=== PATIENT | male | born 1940 | race Caucasian/White ===

== ENCOUNTER 2018-05-15 16:18 | Inpatient (IN) | payer OTHER ==
--- NOTE | 2018-05-15 16:46 | PDOC ---
History of Present Illness - General Chief Complaint: Shortness of Breath Stated Complaint: SOB Time Seen by Provider: 05/15/18 16:36 History Source: Patient Exam Limitations: No Limitations - History of Present Illness Initial Comments: 05/15/18 16:39 The patient is a 78M with a PMH of non small cell lung cancer, HTN, and COPD who presents to the ER with worsening SOB. The patient states that for the past 2 days, he has had worsening SOB including a worsening productive cough with sputum. He states that he tried using his home inhalers without relief. He denies any symptoms of fever, chills, nausea, vomiting, CP, dysuria. He denies any blood in his sputum. Past History - Past Medical History Allergies/Adverse Reactions: Allergies Allergy/AdvReac Type Severity Reaction Status Date / Time No Known Allergies Allergy Verified 05/15/18 16:29 Home Medications: Ambulatory Orders Azithromycin [Zithromax 250mg Tablets -] 250 mg PO UTDICT #6 tab 01/07/18 Inhaler, Assist Devices [Space Chamber Plus] 1 each MC Q4H PRN #1 spacer Prednisone [Deltasone] 20 mg PO DAILY #4 tablet 01/07/18 Cancer: Yes (LUNG ,SMALL CELL) COPD: Yes HTN: Yes - Surgical History Abdominal Surgery: Yes (ING.HERNIA) Lung Surgery: Yes (BIOPSY AND CHEST TUBE LT) - Suicide/Smoking/Psychosocial Hx Smoking History: Former smoker Have you smoked in the past 12 months: No Information on smoking cessation initiated: No 'Breaking Loose' booklet given: 01/07/18 Hx Alcohol Use: No Drug/Substance Use Hx: No Substance Use Type: None Review of Systems - Review of Systems Able to Perform ROS?: Yes Comments:: 05/15/18 16:50 GENERAL/CONSTITUTIONAL: No fever or chills. No weakness. HEAD, EYES, EARS, NOSE AND THROAT: No change in vision. No ear pain or discharge. No sore throat. CARDIOVASCULAR: No chest pain, palpitations, or lightheadedness. RESPIRATORY: Positive for shortness of breath and productive cough. No wheezing or hemoptysis. GASTROINTESTINAL: No nausea, vomiting, diarrhea, constipation, or abdominal pain. GENITOURINARY: No dysuria, frequency, hematuria, or change in urination. MUSCULOSKELETAL: No joint or muscle swelling or pain. No neck or back pain. SKIN: No rash or lesions. NEUROLOGIC: No headache, numbness, tingling, weakness, loss of consciousness, or change in strength/sensation. ENDOCRINE: No increased thirst. No abnormal weight change. HEMATOLOGIC/LYMPHATIC: No anemia, easy bleeding, or history of blood clots. ALLERGIC/IMMUNOLOGIC: No hives or skin allergy. Is the patient limited Cymro proficient: No *Physical Exam - Vital Signs Last Vital Signs Temp Pulse Resp BP Pulse Ox 99 F 127 H 36 H 157/112 89 L 05/15/18 16:29 05/15/18 16:29 05/15/18 16:29 05/15/18 16:29 05/15/18 16:29 - Physical Exam Comments: 05/15/18 16:51 GENERAL: Well developed, well nourished. Awake and alert. No acute distress. HEENT: Normocephalic, atraumatic. Hearing grossly normal. Moist mucous membranes. PERRLA, EOMI. No conjunctival pallor. Sclera are non-icteric. Oropharynx is clear. NECK: Supple. Full ROM. No JVD. CARDIOVASCULAR: Regular rate and rhythm. No murmurs, rubs, or gallops. PULMONARY: In moderate respiratory distress. Inspiratory and expiratory wheezing diffusely on the L lung. Decreased lung sounds on the R lung. ABDOMINAL: Soft. Non-tender. Non-distended. No rebound or guarding. GENITOURINARY: No CVA tenderness bilaterally. MUSCULOSKELETAL: Normal range of motion at all joints. No bony deformities or tenderness. EXTREMITIES: No cyanosis. No clubbing. No edema. No calf tenderness or swelling. SKIN: Warm and dry. Normal capillary refill. No rashes. No jaundice. NEUROLOGICAL: Alert, awake, appropriate. Cranial nerves 2-12 intact. Normal speech. PSYCHIATRIC: Cooperative. Good eye contact. Appropriate mood and affect. ED Treatment Course - LABORATORY CBC & Chemistry Diagram: 05/15/18 17:23 05/15/18 17:23 - RADIOLOGY Radiology Studies Ordered: Category Date Time Status CHEST X-RAY PORTABLE* [RAD] Stat Radiology 05/15/18 16:36 Ordered Medical Decision Making - Medical Decision Making 05/15/18 16:56 The patient is a 78M with a PMH of Lung CA, HTN, and COPD who presents to the ER in respiratory distress, tachypneic, an dtachycardic. I am concerned for worsening lung CA, pleural effusion, infection, PE. Last chemo was 1 week ago so the patient may have an acutely immunocompromised state. Will order sepsis workup. Pending labs and imaging. 05/15/18 17:31 Pt has worsening respiratory distress. Will add duoneb tx, magnesium, and solumedrol. 05/15/18 18:41 Pt states he feels much better but I have discusssed the case with Dr. Parrish who states that the patient had a RLL ill defined opacity, possible neoplastic. Slight hint of progressive disease. He agrees to our plan of CTA if BUN/Cr are normal and treating the patient as COPD vs post-obstructive PNA vs worsening CA. 05/15/18 19:24 I have endorsed the pt to Dr. Guajardo who agrees with our plan. Pt will go to tele. 05/15/18 19:37 Trop 0.46. Repeating troponin now. 05/15/18 22:01 Repeat troponin 0.54. Pt states that he has had worsening SOB. Will give 3 duoneb treatments and monitor closely. *DC/Admit/Observation/Transfer Diagnosis at time of Disposition: COPD exacerbation, Shortness of breath - Discharge Dispostion Condition at time of disposition: Guarded Decision to Admit order: Yes - Referrals - Patient Instructions - Post Discharge Activity
[2018-05-15] MEDS ORDERED: ALBUTEROL SO4 2.5/IPRATROPIUM 0.5 INH SOL 3 ML VIAL.NEB. NEB ONE ×7 (17:10→23:22)
[2018-05-15 17:39] LABS: BASO % 0.1 % (0-2.0); EOS % 0.1 % (0-4.5); HEMATOCRIT 34.8 % (35.4-49); HEMOGLOBIN 11.5 GM/dL (11.7-16.9); LYMPH % 6.8 % (8-40); MCHC 33.2 g/dl (32.0-35.9); MEAN CELL VOLUME 93.3 fl (80-96); MONO % 16.3 % (3.8-10.2); NEUT % 76.7 % (42.8-82.8); PLATELET COUNT 253 K/MM3 (134-434); RBC 3.73 M/mm3 (4.00-5.60); RDW 19.1 % (11.9-15.9); WHITE BLOOD COUNT 10.5 K/mm3 (4.0-10.0)
[2018-05-15 17:40] LABS: VENOUS PC02 45.7 mmHg (38-52); VENOUS PH 7.38 (7.32-7.42); VENOUS PO2 42.5 mmHg (28-48)
[2018-05-15] MEDS ORDERED: methylPREDNISolone NA SUCC 125 MG/2 ML VIAL IVPUSH ONE (17:47)
[2018-05-15 17:50] LABS: INR 1.28 (0.82-1.09); PROTHROMBIN TIME (PATIENT) 14.5 SEC (9.7-13.0)
[2018-05-15 17:53] LABS: ACTIVATED PTT 30.6 SECONDS (25.2-36.5)
--- NOTE | 2018-05-15 18:00 | PDOC ---
Attending Attestation - HPI HPI: 05/15/18 19:13 Mr. Villalta is a 78 year old male with past medical history of HTN, COPD, presents to the emergency department with shortness of breath. Patient presents with an acute onset of progressively worsening shortness of breath for the past 2 days, denies using his nebulizer or inhaler. Patient reports a 6 year chronic history of productive cough, progressively worsening with the SOB. . Denies fever, chills, or a headache. Denies chest pain. Denies nausea or vomiting. Denies diarrhea or constipation. Denies dysuria, hematuria, frequency or urgency to urinate. Denies vertigo or dizziness. Denies numbness, tingling or loss of sensation. Allergies: NKDA Social history: Former smoker. Denies the use of alcohol or recreational drugs. Surgical history: ING.HERNIA and BIOPSY AND CHEST TUBE LT PCP: Noelle Marsh Broker Associate: Dr. Lomeli Oncologist: Dr. Lerner 05/15/18 21:51 - Physicial Exam PE: 05/15/18 19:21 GENERAL: (+) diaphoretic w/ complaint of increasing shortness of breath. Well developed, well nourished. Awake and alert. No acute distress. HEENT: Normocephalic, atraumatic. PERRLA, EOMI. No conjunctival pallor. Sclera are non- icteric. Moist mucous membranes. Oropharynx is clear. NECK: Supple. Full ROM. No JVD. Carotid pulses 2+ and symmetric, without bruits. No thyromegaly. No lymphadenopathy. CARDIOVASCULAR:(+) tachycardia. Regular rate and rhythm. No murmurs, rubs, or gallops. Distal pulses are 2+ and symmetric. PULMONARY: (+) decreased breath sounds. No evidence of respiratory distress. Lungs clear to auscultation bilaterally. No wheezing, rales or rhonchi. ABDOMINAL: flat. Soft. Non-tender. Non-distended. No rebound or guarding. No organomegaly. Normoactive bowel sounds. MUSCULOSKELETAL Normal range of motion at all joints. No bony deformities or tenderness. No CVA tenderness. EXTREMITIES: Full ROM. No cellulitis. No cyanosis. No clubbing. No edema. No calf tenderness. SKIN: Warm and dry. Normal capillary refill. No rashes. No jaundice. NEUROLOGICAL: Alert, awake, appropriate. Cranial nerves 2-12 intact. No deficits to light touch and temperature in face, upper extremities and lower extremities. No motor deficits in the in face, upper extremities and lower extremities. Normoreflexic in the upper and lower extremities. Normal speech. Toes are down- going bilaterally. Gait is normal without ataxia. PSYCHIATRIC: (+) anxious. Cooperative. Good eye contact. Appropriate mood and affect. - Medical Decision Making 05/15/18 21:52 Documentation prepared by Meenakshi Crow, acting as medical transport specialist for Makenzie Guan MD. <Meenakshi Crow - Last Filed: 05/15/18 21:51> - Resident Resident Name: Johnathan Allison - ED Attending Attestation I have performed the following: I have examined & evaluated the patient, The case was reviewed & discussed with the resident, I agree w/resident's findings & plan, Exceptions are as noted - HPI HPI: 05/15/18 18:00 78-year-old male undergoing chemotherapy for lung cancer presents with increasing shortness of breath. In addition to lungs CTA. He has history of COPD. Broker Associate is Dr. Lomeli, PCP is Dr. Chela Padron - Physicial Exam PE: 05/15/18 18:00 78-year-old male with acute respiratory distress. He is tachycardic, hypoxic, diaphoretic with complaint of increasing shortness of breath. Head normocephalic/atraumatic. Neck supple Lungs decreased breath sounds. Abdomen flat, nontender. CVS tachycardia Extremities full range of motion, no evidence of cellulitis. Neuro alert and oriented 3, moving all extremities. Skin warm and dry. Psych anxious - Medical Decision Making 05/15/18 22:03 CT chest is negative for pulmonary embolus, large pleural effusions or consolidation. pulmonary spec, Dr Douglas informed and agrees to tele admission IMP copd exacerbation/lung cancer/elevated troponin r/o NE <Makenzie Guan - Last Filed: 05/15/18 22:07>
[2018-05-15 18:04] LABS: ALBUMIN 2.7 g/dl (3.4-5.0); ANION GAP 8 (8-16); BILIRUBIN,TOTAL 0.8 mg/dL (0.2-1.0); BLOOD UREA NITROGEN 18 mg/dL (7-18); CALCIUM 8.3 mg/dL (8.5-10.1); CHLORIDE 93 mmol/L (98-107); CO2 27 mmol/L (21-32); CREATININE 0.6 mg/dL (0.7-1.3); GLUCOSE,RANDOM 148 mg/dL (74-106); POTASSIUM 3.9 mmol/L (3.5-5.1); SGOT/AST 30 U/L (15-37); SGPT/ALT 30 U/L (12-78); SODIUM 128 mmol/L (136-145); TOT PROT 5.6 g/dl (6.4-8.2)
[2018-05-15 18:05] LABS: ALK PHOS 130 U/L (45-117)
[2018-05-15] MEDS ORDERED: MAGNESIUM SULF 50% (8.12 MEQ/2 ML-1 GM VIAL) IVPB ONE (18:10)
[2018-05-15] MEDS ORDERED: VANCOMYCIN 1,000 MG in DEXTROSE 5%-WATER - 250 ML IVPB ONE (18:10)
[2018-05-15] MEDS ORDERED: SODIUM CHLORIDE 0.9% 1000 ML INFUS.BAG IV ONE (18:10)
[2018-05-15] MEDS ORDERED: PIPERACILLIN/TAZOB 4.5 GM 4.5 GM in DEXTROSE 5%-WATER 100 ML IVPB ONE (18:10)
[2018-05-15] MEDS ORDERED: PIPERACILLIN/TAZOB 4.5 GM 4.5 GM/100 ML BAG IVPB ONE (18:13)
[2018-05-15] MEDS ORDERED: VANCOMYCIN 1 GRAM (PRE-DOCKED) 1,000 MG/250 ML BAG IVPB ONE ×2 (18:13→18:47)
[2018-05-15] MEDS ORDERED: MAGNESIUM SULF 50% (8.12 MEQ/2 ML-1 GM VIAL) ONE (18:30)
[2018-05-15] MEDS ORDERED: methylPREDNISolone NA SUCC 125 MG/2 ML VIAL ONE ×2 (18:30→23:12)
[2018-05-15 19:31] LABS: ARTERIAL BLD GAS O2 SATURATION 97.9 % (90-98.9); ARTERIAL BLOOD GAS pH 7.36 (7.35-7.45)
[2018-05-15 19:32] LABS: ALLENS TEST POSITIVE
[2018-05-15 20:40] LABS: URINE APPEARANCE CLEAR; URINE BILIRUBIN NEGATIVE (<2.0 mg/dL); URINE COLOR YELLOW; URINE GLUCOSE (UA) NEGATIVE (NEGATIVE); URINE KETONE NEGATIVE (NEGATIVE); URINE LEUK ESTERASE NEGATIVE (NEGATIVE); URINE NITRITE NEGATIVE (NEGATIVE); URINE PROTEIN NEGATIVE (NEGATIVE); URINE UROBILINOGEN NEGATIVE mg/dL (0.2-1.0)
[2018-05-15 20:51] LABS: EPI CELLS RARE /HPF (FEW); URINE HYALINE CAST 1 /lpf; URINE MUCUS RARE
[2018-05-15] MEDS ORDERED: ACETAMINOPHEN 325 MG TABLET (FP) PO PRN (22:33)
[2018-05-15] MEDS: methylPREDNISolone NA SUCC 125 MG/2 ML VIAL IVPB SCH (23:22)
[2018-05-16] MEDS ORDERED: PIPERACILLIN/TAZOBACTAM 3.375 GM VIAL IVPB ONE ×3 (01:29→17:39)
[2018-05-16] MEDS ORDERED: DEXTROSE 5%-WATER - 50 ML IVPB ONE ×3 (01:30→17:39)
[2018-05-16] MEDS ORDERED: PIPERACILLIN/TAZOB 3.375 GM 3.375 GM in DEXTROSE 5%-WATER - 50 ML IVPB SCH (02:00)
[2018-05-16] MEDS: PIPERACILLIN/TAZOB 3.375 GM 3.375 GM in DEXTROSE 5%-WATER - 50 ML IVPB SCH ×3 (02:22→17:45)
[2018-05-16 03:58] VITALS: BMI 19.6
[2018-05-16] MEDS: methylPREDNISolone NA SUCC 125 MG/2 ML VIAL IVPB SCH ×4 (04:03→21:58)
[2018-05-16 07:12] LABS: BASO % 0.1 % (0-2.0); HEMATOCRIT 30.6 % (35.4-49); HEMOGLOBIN 10.4 GM/dL (11.7-16.9); LYMPH % 9.1 % (8-40); MCH 31.8 pg (25.7-33.7); MCHC 34.1 g/dl (32.0-35.9); MEAN CELL VOLUME 93.2 fl (80-96); MONO % 4.5 % (3.8-10.2); NEUT % 86.3 % (42.8-82.8); PLATELET COUNT 214 K/MM3 (134-434); RBC 3.28 M/mm3 (4.00-5.60); RDW 19.5 % (11.9-15.9); WHITE BLOOD COUNT 9.4 K/mm3 (4.0-10.0)
[2018-05-16 07:23] LABS: ALBUMIN 2.3 g/dl (3.4-5.0); ANION GAP 9 (8-16); BLOOD UREA NITROGEN 17 mg/dL (7-18); CALCIUM 7.9 mg/dL (8.5-10.1); CHLORIDE 95 mmol/L (98-107); CO2 26 mmol/L (21-32); GLUCOSE,RANDOM 153 mg/dL (74-106); POTASSIUM 3.8 mmol/L (3.5-5.1); SODIUM 130 mmol/L (136-145)
[2018-05-16 07:29] LABS: ALK PHOS 115 U/L (45-117); BILIRUBIN,TOTAL 0.6 mg/dL (0.2-1.0); CREATININE 0.6 mg/dL (0.7-1.3); SGOT/AST 24 U/L (15-37); SGPT/ALT 27 U/L (12-78)
--- NOTE | 2018-05-16 08:11 | HP ---
Admitting History and Physical - Primary Care Physician PCP: Noelle Blancas - Admission Chief Complaint: shortness of breath History of Present Illness: received chemo on 05.08.18, felt weak afterwards and has been constipated . yesterday developed severe shortness of breath so came to er. has chronic cough, mostly at nighttime with yellow sputum production. no chest pain or palpitation noted by pt. not on home O2, recently evaluated for it, did not need it. now on gemcitabine weekly for two weeks, then one week off. chest ct in january 2018 showed: melva and lll spiculated nodules ill defined densities in right and left lower lobe likely neoplastic right lower lobe ground glass opacities History Source: Patient Limitations to Obtaining History: No Limitations - Past Medical History Cardiovascular: Yes: CAD (card.cath 2015-no stents, (pt had abnormal EKG and stress test)), HTN Pulmonary: Yes: Cancer (squamous cell cancer dg in , multiple sites, not candidate for surgical or radiation, started gemcitabine and carboplatin, currently on gemcitabine maintenance), COPD - Past Surgical History Past Surgical History: Yes: Cataract Removal, Hernia Repair (inguinal) - Smoking History Smoking history: Former smoker (60 pack year smoking history) Have you smoked in the past 12 months: Yes If you are a former smoker, when did you quit?: 2017 - Alcohol/Substance Use Hx Alcohol Use: Yes (BEER DAILY) - Social History Usual Living Arrangement: Yes: With Spouse ADL: Independent History of Recent Travel: No Home Medications - Allergies Allergies/Adverse Reactions: Allergies Allergy/AdvReac Type Severity Reaction Status Date / Time No Known Allergies Allergy Verified 05/15/18 16:29 - Home Medications Home Medications: Ambulatory Orders Inhaler, Assist Devices [Space Chamber Plus] 1 each MC Q4H PRN #1 spacer Prednisone [Deltasone] 20 mg PO DAILY #4 tablet 01/07/18 Review of Systems - Review of Systems Constitutional: reports: Loss of Appetite, Unintentional Wgt. Loss, Weakness. denies: Chills, Diaphoresis, Fever HENT: reports: No Symptoms Neck: reports: No Symptoms Cardiovascular: reports: No Symptoms. denies: Chest Pain, Palpitations Respiratory: reports: Cough, Exercise Intolerance, SOB on Exertion. denies: Hemoptysis, Wheezing Gastrointestinal: reports: No Symptoms Genitourinary: reports: No Symptoms Integumentary: reports: No Symptoms Neurological: reports: No Symptoms Psychiatric: reports: No Symptoms Physical Examination Vital Signs: Vital Signs Temperature 98.7 F 05/16/18 01:00 Pulse Rate 190 H 05/16/18 01:00 Respiratory Rate 22 05/16/18 01:00 Blood Pressure 127/72 05/16/18 01:00 O2 Sat by Pulse Oximetry (%) 90 L 05/16/18 01:00 Findings/Remarks: feels comfortable, denies dyspnea at present Constitutional: Yes: No Distress, Calm, Cachectic Eyes: Yes: WNL HENT: Yes: WNL Neck: Yes: WNL Cardiovascular: Yes: Regular Rate and Rhythm Respiratory: Yes: Diminished (decreased bs at both bases), Wheezes (exp. wheezing over upper chest) Gastrointestinal: Yes: WNL, Normal Bowel Sounds, Soft Musculoskeletal: Yes: WNL Extremities: Yes: WNL Edema: LLE: 1+, RLE: 1+ Peripheral Pulses WNL: Yes Neurological: Yes: WNL Psychiatric: Yes: WNL Labs: CBC, BMP 05/16/18 05:30 05/16/18 05:30 Abnormal Lab Results 05/15/18 05/15/18 05/15/18 17:20 17:23 17:23 WBC 10.5 H RBC 3.73 L Hgb 11.5 L Hct 34.8 L RDW 19.1 H MPV 6.0 L Neutrophils % Lymphocytes % 6.8 L D Monocytes % 16.3 H PT with INR 14.50 H INR 1.28 H Mixed VBG HCO3 Sodium Chloride Creatinine Random Glucose Lactic Acid 2.2 H* Calcium Alkaline Phosphatase Troponin I Total Protein Albumin Urine Blood 05/15/18 05/15/18 05/15/18 17:23 17:23 17:23 WBC RBC Hgb Hct RDW MPV Neutrophils % Lymphocytes % Monocytes % PT with INR INR Mixed VBG HCO3 26.5 H Sodium 128 L Chloride 93 L Creatinine 0.6 L Random Glucose 148 H D Lactic Acid Calcium 8.3 L Alkaline Phosphatase 130 H Troponin I 0.46 H Total Protein 5.6 L Albumin 2.7 L Urine Blood 05/15/18 05/15/18 05/16/18 19:45 20:30 05:30 WBC RBC 3.28 L Hgb 10.4 L Hct 30.6 L RDW 19.5 H MPV 6.0 L Neutrophils % 86.3 H Lymphocytes % Monocytes % PT with INR INR Mixed VBG HCO3 Sodium Chloride Creatinine Random Glucose Lactic Acid Calcium Alkaline Phosphatase Troponin I 0.51 H Total Protein Albumin Urine Blood 2+ H 05/16/18 05:30 WBC RBC Hgb Hct RDW MPV Neutrophils % Lymphocytes % Monocytes % PT with INR INR Mixed VBG HCO3 Sodium 130 L Chloride 95 L Creatinine 0.6 L Random Glucose 153 H Lactic Acid Calcium 7.9 L Alkaline Phosphatase Troponin I 0.20 H D Total Protein 5.0 L Albumin 2.3 L Urine Blood Imaging - Results Cat Scan: Report Reviewed Problem List - Problems (1) Lung cancer Code(s): C34.90 - MALIGNANT NEOPLASM OF UNSP PART OF UNSP BRONCHUS OR LUNG Qualifiers: Laterality: left Lung location: upper lobe of lung Qualified Code(s): C34.12 - Malignant neoplasm of upper lobe, left bronchus or lung (2) HTN (hypertension) Code(s): I10 - ESSENTIAL (PRIMARY) HYPERTENSION Qualifiers: Hypertension type: essential hypertension Qualified Code(s): I10 - Essential (primary) hypertension (3) Pneumonia Code(s): J18.9 - PNEUMONIA, UNSPECIFIED ORGANISM Qualifiers: Lung location: upper lobe of lung (4) COPD exacerbation Code(s): J44.1 - CHRONIC OBSTRUCTIVE PULMONARY DISEASE W (ACUTE) EXACERBATION (5) Shortness of breath Code(s): R06.02 - SHORTNESS OF BREATH Assessment/Plan Acute COPD exacerbation advanced COPD at baseline possible additional pna underlying lung cancer-with slow progression noted over serial imaging on gemcitabine maintenance iv steroids with rapid taper iv abx? positive troponin likely due to cardiac strain due to severe dyspnea yesterday no pulmonary embolism re evaluate for home O2 prior to dc GI/DVT prophylaxis
[2018-05-16] MEDS ORDERED: guaiFENesin/CODEINE 5 ML UNIT-DOSE CUPS PO PRN (08:24)
[2018-05-16] MEDS: ALBUTEROL SO4 0.083% IH SOL 2.5 MG/3 ML VIAL.NEB. NEB PRN ×2 (10:35→20:40)
[2018-05-16] MEDS: amLODIPine BESYLATE 5 MG TABLET (FP) PO SCH (10:58)
[2018-05-16] MEDS: ASPIRIN COATED 81 MG TABLET.EC PO SCH (10:58)
[2018-05-16] MEDS: ENOXAPARIN NA (PORCINE) 40 MG/0.4 ML DISP.SYRIN SQ SCH (10:59)
[2018-05-16] MEDS: PANTOPRAZOLE 40 MG TABLET (FP) PO SCH (11:00)
--- NOTE | 2018-05-16 11:09 | PN ---
Progress Note (short form) - Note Progress Note: PULMONARY CONSULTATION DICTATED 05/16/18 IMP ACUTE HYPOXEMIC RESPIRATORY FAILURE COPD EXACERBATION LUNG CA SQUAMOUS CELL ON GEMCITABINE BILATERAL PULMONARY NODULES + TROPONINS ? DEMAND ISCHEMIA HYPONATREMIA ASHD HTN PLAN O2 INHALED BRONCHODILATORS STEROIDS ABX TREND TROPONINS MONITOR [place] [address] Problem List - Problems (1) Acute hypoxemic respiratory failure Code(s): J96.01 - ACUTE RESPIRATORY FAILURE WITH HYPOXIA (2) COPD exacerbation Code(s): J44.1 - CHRONIC OBSTRUCTIVE PULMONARY DISEASE W (ACUTE) EXACERBATION (3) HTN (hypertension) Code(s): I10 - ESSENTIAL (PRIMARY) HYPERTENSION Qualifiers: Hypertension type: essential hypertension Qualified Code(s): I10 - Essential (primary) hypertension (4) Lung cancer Code(s): C34.90 - MALIGNANT NEOPLASM OF UNSP PART OF UNSP BRONCHUS OR LUNG Qualifiers: Laterality: left Lung location: upper lobe of lung Qualified Code(s): C34.12 - Malignant neoplasm of upper lobe, left bronchus or lung (5) Shortness of breath Code(s): R06.02 - SHORTNESS OF BREATH (6) Troponin I above reference range Code(s): R74.8 - ABNORMAL LEVELS OF OTHER SERUM ENZYMES
--- NOTE | 2018-05-16 11:24 | EKG ---
Test Reason : Blood Pressure : / mmHG Vent. Rate : 111 BPM Atrial Rate : 111 BPM P-R Int : 158 ms QRS Dur : 088 ms QT Int : 354 ms P-R-T Axes : 073 -48 263 degrees QTc Int : 481 ms POOR DATA QUALITY, INTERPRETATION MAY BE ADVERSELY AFFECTED SINUS TACHYCARDIA WITH FREQUENT PREMATURE VENTRICULAR COMPLEXES AND FUSION COMPLEXES POSSIBLE LEFT ATRIAL ENLARGEMENT LEFT AXIS DEVIATION ANTERIOR INFARCT , AGE UNDETERMINED T WAVE ABNORMALITY, CONSIDER LATERAL ISCHEMIA ABNORMAL ECG Confirmed by MD TK, MAN ([id number]) on 05/16/2018 11:24:37 AM Referred By: Confirmed By:MAN FREY MD
--- NOTE | 2018-05-16 11:37 | CONS ---
PULMONARY CONSULTATION DATE OF CONSULTATION: 05/16/2018 REFERRING PHYSICIAN: Noelle Blancas MD The patient is a 78-year-old white male with a past medical history of COPD, not on home O2; history of lung CA, non-small cell type diagnosed in May 2017, currently on chemotherapy, being followed at [facility] on chemotherapy of gemcitabine, last dose 1 day prior to this admission, also history of ASHD status post catheterization, hypertension, admitted to [facility] on May 15, with complaint of increasing shortness of breath. Patient states he was watching TV and complained of acute shortness of breath. He denied any chest pain, nausea, vomiting, or diaphoresis. Did complain of cough productive of yellow sputum and occasional wheezing. He presented to the emergency room with the above. In the ER, he underwent a CTA of the chest which showed no evidence of pulmonary emboli but revealed increase in interval growth of the left upper lobe nodule and ill-defined densities in the right and left lower lobe. The patient was also noted to have elevated troponin levels. At which time, he was transferred to the medical telemetry unit for management. He denies any chest pain. He denies any history of respiratory failure in the past requiring ventilatory support. As stated before, he has a history of lung CA which was diagnosed in May [address]-guided biopsy at [facility] and has been on gemcitabine. He has a history of tobacco use, approximately 1-1/2 packs per day for 65 years. He quit in May 2017. He denies any history of occupational exposure to chemicals or fumes. There is no history of deep vein thrombosis or pulmonary emboli in the past. PAST MEDICAL HISTORY: Again includes lung CA, squamous cell, diagnosed in July 2017, not a candidate for surgical or RT, currently maintained on gemcitabine and carboplatin, currently on gemcitabine maintenance; a history of ASHD status post catheterization, no stents; hypertension. REVIEW OF SYSTEMS: Positive dyspnea. Positive cough. Positive sputum. No hemoptysis. No chest pain. No palpitations. No fever. No chills. No abdominal pain. CURRENT MEDICATIONS: Include Solu-Medrol 60 q.6, Tylenol, piperacillin, Lovenox, Spiriva, Robitussin A-C, albuterol, Norvasc, Singulair, Ecotrin, and Protonix. PHYSICAL EXAMINATION: General: The patient is a well-developed, well-nourished male, awake, alert, in no acute distress. Vital Signs: He is afebrile. Blood pressure is 127/72, respiratory rate is 20, heart rate is 110, and O2 saturation is 94% on 3 L. HEENT: Normocephalic, atraumatic. Neck: Supple. Heart: Regular. S1, S2. Chest: Bibasilar crackles. A few scattered wheezes. Rhonchi bilaterally. Abdomen: Soft. Bowel sounds are positive. Extremities: No cyanosis or edema. LABORATORY DATA: BUN is 17, creatinine 0.6. Sodium is 130. On admission, serum sodium was 128. The lactate level was 2.2 on admission, most recent 1.9. Troponin currently 0.20, the highest being 0.51. WBC is 9.4, hemoglobin 10.4, hematocrit 30.6, with a platelet count of 214,000. INR is 1.28. Chest CT reveals a 2.5-cm, semi-solid nodule in the anterior basal portion of the right lower lobe. There is a 1.3-cm, spiculated, non-calcified nodule in the left upper lobe. It is increased in size from previous exam. There is a 1.4 irregular nodule in the anterior segment of the left upper lobe; stable, mild mediastinal adenopathy. IMPRESSION: 1. Dyspnea, most likely secondary to exacerbation of chronic obstructive pulmonary disease. 2. History of lung cancer, squamous cell type, currently on gemcitabine. 3. Positive troponins, possible secondary to demand ischemia but must rule out [id number] myocardial infarction. 4. Elevated lactate level, currently normal, . 5. Hyponatremia. 6. Hypertension. PLAN: IV steroids, inhaled bronchodilators, supplemental O2. Trend troponin levels. Obtain echocardiogram. Monitor serum sodium, urine electrolytes. Thank you. Will follow closely with you. LEOLA BERNARDO M.D. [id number]
[2018-05-16] MEDS: TIOTROPIUM BROMIDE 18 MCG CAPSULES IH SCH (12:55)
--- NOTE | 2018-05-16 14:01 | CON.CARD ---
Consult Consult Specialty:: cardiology Reason for Consultation:: shortness of breath - History of Present Illness Chief Complaint: Pt A&Ox3; no chest pain; dyspneic on minimal exertion (even when speaking). His is at bedside, and contributes to pt's history. History of Present Illness: The patient is a 78 yo white man with a PMH of non small cell lung cancer, HTN , and COPD who presents to the ER with worsening SOB. The patient states that for the past 2 days, he has had worsening SOB including a worsening productive cough with sputum. He states that he tried using his home inhalers without relief. He denies any symptoms of fever, chills, nausea, vomiting, CP, dysuria. He denies any blood in his sputum. 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 - History Source History Provided By: Patient, Family Member, Medical Record Limitations to Obtaining History: No Limitations - Past Medical History Cardio/Vascular: Yes: CAD (card.cath 2015-no stents, (pt had abnormal EKG and stress test)), HTN Pulmonary: Yes: Cancer (squamous cell cancer dg in , multiple sites, not candidate for surgical or radiation, started gemcitabine and carboplatin, currently on gemcitabine maintenance), COPD. No: Asthma Heme/Onc: Yes: Anemia Psych: Yes: Anxiety - Past Surgical History Past Surgical History: Yes: Cataract Removal, Hernia Repair (inguinal) - Alcohol/Substance Use Hx Alcohol Use: Yes (BEER DAILY) - Smoking History Smoking history: Former smoker (60 pack year smoking history) Have you smoked in the past 12 months: Yes If you are a former smoker, when did you quit?: 2017 - Social History ADL: Independent History of Recent Travel: No Home Medications - Allergies Allergies/Adverse Reactions: Allergies Allergy/AdvReac Type Severity Reaction Status Date / Time No Known Allergies Allergy Verified 05/15/18 16:29 - Home Medications Home Medications: Ambulatory Orders Inhaler, Assist Devices [Space Chamber Plus] 1 each MC Q4H PRN #1 spacer Prednisone [Deltasone] 20 mg PO DAILY #4 tablet 01/07/18 Review of Systems - Review of Systems Constitutional: reports: Loss of Appetite, Weakness Eyes: reports: No Symptoms HENT: reports: No Symptoms Neck: reports: No Symptoms Cardiovascular: reports: Shortness of Breath Respiratory: reports: SOB Gastrointestinal: reports: No Symptoms Genitourinary: reports: No Symptoms Breasts: reports: No Symptoms Reported Musculoskeletal: reports: Muscle Weakness Integumentary: reports: No Symptoms Neurological: reports: Weakness Hematology/Lymphatic: reports: No Symptoms Psychiatric: reports: Anxiety, Depression - Risk Factors Known Risk Factors: Yes: Age, Gender, Hypertension, Physical Inactivity, Smoking , Other (lung CA; COPD) Vital Signs: Vital Signs Temperature 97.6 F 05/16/18 09:00 Pulse Rate 108 H 05/16/18 09:00 Respiratory Rate 26 H 05/16/18 09:00 Blood Pressure 134/85 05/16/18 09:00 O2 Sat by Pulse Oximetry (%) 97 05/16/18 09:00 Constitutional: Yes: Calm Eyes: Yes: WNL HENT: Yes: WNL Neck: Yes: WNL Respiratory: Yes: Diminished Gastrointestinal: Yes: Soft Renal/: No: Anuria Cardiovascular: Yes: Regular Rate and Rhythm JVD: No Carotid Bruit: No PMI: Non-Displaced Heart Sounds: Yes: S1, S2 Murmur: Yes: Systolic Murmur, Grade 2 Musculoskeletal: Yes: Muscle Weakness Extremities: Yes: Cool Edema: No Peripheral Pulses WNL: Yes Integumentary: Yes: WNL Neurological: Yes: Alert, Oriented, Weakness Psychiatric: Yes: Alert, Oriented - Other Data Labs, Other Data: CBC, BMP 05/16/18 05:30 05/16/18 05:30 INR, PTT INR 1.28 (0.82-1.09) H 05/15/18 17:23 Troponin, BNP 05/15/18 05/15/18 05/16/18 17:23 19:45 05:30 Troponin I 0.46 H 0.51 H 0.20 H D Troponin, BNP 05/15/18 05/15/18 05/16/18 17:23 19:45 05:30 Troponin I 0.46 H 0.51 H 0.20 H D Abnormal Lab Results 05/18/18 05/18/18 05:30 05:30 WBC 12.3 H RBC 3.10 L Hgb 10.0 L Hct 29.0 L RDW 19.6 H MPV 6.3 L Lymphocytes % 7.1 L D Anion Gap 7 L BUN 21 H Creatinine 0.6 L Random Glucose 110 H D Calcium 8.1 L Total Protein 4.8 L Albumin 2.3 L HDL Cholesterol 37 L Free T4 1.66 H Echo: Pending Imaging - Results Chest X-ray: Image Reviewed (copd; lung nodules) Problem List - Problems (1) Acute hypoxemic respiratory failure Code(s): J96.01 - ACUTE RESPIRATORY FAILURE WITH HYPOXIA (2) COPD exacerbation Code(s): J44.1 - CHRONIC OBSTRUCTIVE PULMONARY DISEASE W (ACUTE) EXACERBATION (3) HTN (hypertension) Assessment/Plan: on amlodipine Code(s): I10 - ESSENTIAL (PRIMARY) HYPERTENSION Qualifiers: Hypertension type: essential hypertension Qualified Code(s): I10 - Essential (primary) hypertension (4) Lung cancer Assessment/Plan: advanced CA Coronary angiogram in 2016: non-obstructive CAD. Follow ECHO for LVEF F/u lipids and TSH. Code(s): C34.90 - MALIGNANT NEOPLASM OF UNSP PART OF UNSP BRONCHUS OR LUNG Qualifiers: Laterality: left Lung location: upper lobe of lung Qualified Code(s): C34.12 - Malignant neoplasm of upper lobe, left bronchus or lung (5) Troponin I above reference range Code(s): R74.8 - ABNORMAL LEVELS OF OTHER SERUM ENZYMES (6) CAD (coronary artery disease) Assessment/Plan: EKG changes-->coronary angiogram in 2016 at [facility] (reportedly non- obstructive disease). Code(s): I25.10 - ATHSCL HEART DISEASE OF [place] CORONARY ARTERY W/O ANG PCTRS (7) Acute CHF Assessment/Plan: F/u ECHo for LVEF, diastolic compliance. BNP > 10,000 in December; f/u repeat. Frequent APCs and PVCs; may benefit from beta blockers, particularly if has systolic CHF (pt denies hx bronchial asthma, making safety and tolerance of beta blockers more likely). Code(s): I50.9 - HEART FAILURE, UNSPECIFIED
--- NOTE | 2018-05-16 17:01 | PN ---
Progress Note (short form) - Note Progress Note: ID Consult dictated Acute exacerbation COPD Lung ca on chemotherapy No evidence of pneumonia on CT Observe off antibiotics Bronchodilators/ corticosteroids
--- NOTE | 2018-05-16 18:28 | CONS ---
DATE OF CONSULTATION: DATE OF DICTATION: 05/16/2018 INFECTIOUS DISEASE CONSULTATION HISTORY OF PRESENT ILLNESS: The patient is a 78-year-old male with a history of non-small cell CA of the lung, history of COPD, evaluated for possible pneumonia. The patient was admitted to the hospital May 15, 2018, with a 2-day history of worsening shortness of breath. Patient had used his nebulizer treatments without relief. He also had cough productive of yellowish greenish sputum. He reports a history of chronic cough which has not changed in nature. He is on chemotherapy, the last cycle of which was one week ago. He denies any ill contacts. No recent travel. He is a former smoker. PAST MEDICAL HISTORY: Positive for non-small cell CA of the lung diagnosed 2017, COPD, hypertension. PAST SURGICAL HISTORY: Inguinal hernia repair. ALLERGIES: No known allergies. MEDICATION: Include Zithromax, prednisone, . SOCIAL HISTORY: Former smoker. Lives in the community with his . SYSTEMS REVIEW: Neurologic: No loss of consciousness, seizure activity, or focal weakness. Cardiac: Negative chest pain or palpitations. Respiratory: As per HPI. Gastrointestinal: Negative vomiting or diarrhea. Genitourinary: Negative for urinary tract infection. LABORATORY DATA: White count 10.5, hematocrit 34.8, platelet count 253, BUN 17, creatinine 0.6. Urinalysis 3 white cells. CAT scan reviewed, no evidence of infiltrate. There are nodular lesions in both lung vazquez. PHYSICAL EXAMINATION: General: He is awake and alert. He is dyspneic at rest in bed. Vital signs: Temperature 98.7, T-max 99.7, blood pressure 127/72, pulse 100 regular, respirations 22 per minute. HEENT: Sclerae anicteric. Cardiovascular: Heart sounds S1, S2. Respiratory: Lungs crepitations at the bases bilaterally. Deep diminished breath sounds upper lung vazquez bilaterally. Abdomen: Soft. Nontender. Extremities: Negative for edema. IMPRESSION: 1. Acute exacerbation chronic obstructive pulmonary disease. 2. Lung carcinoma on chemotherapy. 3. No evidence of pneumonia on CAT scan. Observe off antibiotic therapy. Continue bronchodilators. Supplemental oxygen. Intravenous corticosteroids. Pulmonary followup. Thank you for the kind referral. IDALMIS REHMAN M.D. [id number]
[2018-05-16] MEDS: MONTELUKAST NA 10 MG TABLET PO SCH (21:58)
[2018-05-17] MEDS: methylPREDNISolone NA SUCC 125 MG/2 ML VIAL IVPB SCH (05:33)
[2018-05-17] MEDS ORDERED: POLYETHYLENE GLYCOL 3350 119 GM BTL PO PRN (08:50)
--- NOTE | 2018-05-17 08:54 | PN ---
Progress Note (short form) - Note Progress Note: Consults appreciated feeling better less dyspnea c/o constipation no fever, no chills Vital Signs Period Temp Pulse Resp BP Sys/Taylor Pulse Ox Last 24 Hr 97.5 F-98.9 F 50-108 20-26 110-134/55-85 97-97 s1s2 rrr lungs cta, better air entry abd soft NT no edema aaox3 Acute COPD exacerbation progressive lung ca HTN +trop check echo steroid taper GI dvt prophylaxis Problem List - Problems (1) Lung cancer Code(s): C34.90 - MALIGNANT NEOPLASM OF UNSP PART OF UNSP BRONCHUS OR LUNG Qualifiers: Laterality: left Lung location: upper lobe of lung Qualified Code(s): C34.12 - Malignant neoplasm of upper lobe, left bronchus or lung (2) HTN (hypertension) Code(s): I10 - ESSENTIAL (PRIMARY) HYPERTENSION Qualifiers: Hypertension type: essential hypertension Qualified Code(s): I10 - Essential (primary) hypertension (3) Pneumonia Code(s): J18.9 - PNEUMONIA, UNSPECIFIED ORGANISM Qualifiers: Lung location: upper lobe of lung (4) COPD exacerbation Code(s): J44.1 - CHRONIC OBSTRUCTIVE PULMONARY DISEASE W (ACUTE) EXACERBATION (5) Shortness of breath Code(s): R06.02 - SHORTNESS OF BREATH
[2018-05-17] MEDS: ENOXAPARIN NA (PORCINE) 40 MG/0.4 ML DISP.SYRIN SQ SCH (09:22)
[2018-05-17] MEDS: PANTOPRAZOLE 40 MG TABLET (FP) PO SCH (09:22)
[2018-05-17] MEDS: ASPIRIN COATED 81 MG TABLET.EC PO SCH (09:22)
[2018-05-17] MEDS: TIOTROPIUM BROMIDE 18 MCG CAPSULES IH SCH (09:22)
[2018-05-17] MEDS: methylPREDNISolone NA SUCC 40 MG/1 ML VIAL IVPB SCH ×3 (09:22→21:22)
[2018-05-17] MEDS: amLODIPine BESYLATE 5 MG TABLET (FP) PO SCH (09:22)
--- NOTE | 2018-05-17 10:05 | PN ---
Progress Note, Physician History of Present Illness: PULMONARY ALERT,FEELING BETTER,LESS DYSPNEIC - Current Medication List Current Medications: Active Medications Acetaminophen (Tylenol -) 650 mg PO Q4H PRN PRN Reason: PAIN OR FEVER Albuterol Sulfate (Ventolin 0.083% Nebulizer Soln -) 1 amp NEB Q4H PRN PRN Reason: SHORT OF BREATH/WHEEZING Last Admin: 05/16/18 20:40 Dose: 1 amp Amlodipine Besylate (Norvasc -) 5 mg PO DAILY [facility] Last Admin: 05/17/18 09:22 Dose: 5 mg Aspirin (Ecotrin -) 81 mg PO DAILY [facility] Last Admin: 05/17/18 09:22 Dose: 81 mg Enoxaparin Sodium (Lovenox -) 40 mg SQ DAILY [facility] Last Admin: 05/17/18 09:22 Dose: 40 mg Guaifenesin/Codeine Phosphate (Robitussin Ac -) 5 ml PO TID PRN PRN Reason: COUGH Methylprednisolone Sodium Succinate (Solu-Medrol -) 40 mg IVPB Q6H-IV [facility] Last Admin: 05/17/18 09:22 Dose: 40 mg Montelukast Sodium (Singulair -) 10 mg PO HS [facility] Last Admin: 05/16/18 21:58 Dose: 10 mg Pantoprazole Sodium (Protonix -) 40 mg PO DAILY [facility] Last Admin: 05/17/18 09:22 Dose: 40 mg Polyethylene Glycol (Miralax (For Daily Use) -) 17 gm PO DAILY PRN PRN Reason: CONSTIPATION Last Admin: 05/17/18 09:38 Dose: 17 gm Tiotropium [place] (Spiriva -) 1 puff IH DAILY [facility] Last Admin: 05/17/18 09:22 Dose: 1 puff - Objective Vital Signs: Vital Signs Temperature 97.6 F 05/17/18 06:27 Pulse Rate 71 05/17/18 06:27 Respiratory Rate 20 05/17/18 06:27 Blood Pressure 110/60 05/17/18 06:27 O2 Sat by Pulse Oximetry (%) 97 05/16/18 20:38 Constitutional: Yes: Well Nourished, Calm Eyes: Yes: WNL HENT: Yes: WNL Neck: Yes: WNL Cardiovascular: Yes: Regular Rate and Rhythm, S1, S2 Respiratory: Yes: Wheezes (SCATTERED DIPIKA WHEEZES) Gastrointestinal: Yes: Normal Bowel Sounds, Soft Extremities: Yes: WNL Edema: No Labs: Problem List - Problems (1) Acute hypoxemic respiratory failure Code(s): J96.01 - ACUTE RESPIRATORY FAILURE WITH HYPOXIA (2) COPD exacerbation Code(s): J44.1 - CHRONIC OBSTRUCTIVE PULMONARY DISEASE W (ACUTE) EXACERBATION (3) HTN (hypertension) Code(s): I10 - ESSENTIAL (PRIMARY) HYPERTENSION Qualifiers: Hypertension type: essential hypertension Qualified Code(s): I10 - Essential (primary) hypertension (4) Lung cancer Code(s): C34.90 - MALIGNANT NEOPLASM OF UNSP PART OF UNSP BRONCHUS OR LUNG Qualifiers: Laterality: left Lung location: upper lobe of lung Qualified Code(s): C34.12 - Malignant neoplasm of upper lobe, left bronchus or lung (5) Shortness of breath Code(s): R06.02 - SHORTNESS OF BREATH (6) Troponin I above reference range Code(s): R74.8 - ABNORMAL LEVELS OF OTHER SERUM ENZYMES Assessment/Plan IMP ACUTE HYPOXEMIC RESPIRATORY FAILURE IMPROVING COPD EXACERBATION IMPROVING LUNG CA SQUAMOUS CELL ON GEMCITABINE BILATERAL PULMONARY NODULES + TROPONINS HYPONATREMIA ASHD HTN PLAN O2 INHALED BRONCHODILATORS STEROIDS SAME DOSE ABX TREND TROPONINS MONITOR LYSAJAN,NA DR BERNARDO Problem List - Problems (1) Acute hypoxemic respiratory failure Code(s): J96.01 - ACUTE RESPIRATORY FAILURE WITH HYPOXIA (2) COPD exacerbation Code(s): J44.1 - CHRONIC OBSTRUCTIVE PULMONARY DISEASE W (ACUTE) EXACERBATION (3) HTN (hypertension) Code(s): I10 - ESSENTIAL (PRIMARY) HYPERTENSION Qualifiers: Hypertension type: essential hypertension Qualified Code(s): I10 - Essential (primary) hypertension (4) Lung cancer Code(s): C34.90 - MALIGNANT NEOPLASM OF UNSP PART OF UNSP BRONCHUS OR LUNG Qualifiers: Laterality: left Lung location: upper lobe of lung Qualified Code(s): C34.12 - Malignant neoplasm of upper lobe, left bronchus or lung (5) Shortness of breath Code(s): R06.02 - SHORTNESS OF BREATH (6) Troponin I above reference range Code(s): R74.8 - ABNORMAL LEVELS OF OTHER SERUM ENZYMES
--- NOTE | 2018-05-17 11:02 | PN ---
Progress Note, Physician History of Present Illness: The patient is a 78 yo white man with a PMH of non small cell lung cancer, HTN , and COPD who presents to the ER with worsening SOB. The patient states that for the past 2 days, he has had worsening SOB including a worsening productive cough with sputum. He states that he tried using his home inhalers without relief. He denies any symptoms of fever, chills, nausea, vomiting, CP, dysuria. He denies any blood in his sputum. - History Source History Provided By: Patient, Medical Record - Past Medical History Cardio/Vascular: Yes: CAD (card.cath 2016-no stents, (pt had abnormal EKG and stress test)), HTN Pulmonary: Yes: Cancer (squamous cell cancer dg in , multiple sites, not candidate for surgical or radiation, started gemcitabine and carboplatin, currently on gemcitabine maintenance), COPD - Current Medication List Current Medications: Active Medications Acetaminophen (Tylenol -) 650 mg PO Q4H PRN PRN Reason: PAIN OR FEVER Albuterol Sulfate (Ventolin 0.083% Nebulizer Soln -) 1 amp NEB Q4H PRN PRN Reason: SHORT OF BREATH/WHEEZING Last Admin: 05/16/18 20:40 Dose: 1 amp Amlodipine Besylate (Norvasc -) 5 mg PO DAILY [facility] Last Admin: 05/17/18 09:22 Dose: 5 mg Aspirin (Ecotrin -) 81 mg PO DAILY [facility] Last Admin: 05/17/18 09:22 Dose: 81 mg Enoxaparin Sodium (Lovenox -) 40 mg SQ DAILY [facility] Last Admin: 05/17/18 09:22 Dose: 40 mg Guaifenesin/Codeine Phosphate (Robitussin Ac -) 5 ml PO TID PRN PRN Reason: COUGH Methylprednisolone Sodium Succinate (Solu-Medrol -) 40 mg IVPB Q6H-IV [facility] Last Admin: 05/17/18 09:22 Dose: 40 mg Montelukast Sodium (Singulair -) 10 mg PO HS [facility] Last Admin: 05/16/18 21:58 Dose: 10 mg Pantoprazole Sodium (Protonix -) 40 mg PO DAILY [facility] Last Admin: 05/17/18 09:22 Dose: 40 mg Polyethylene Glycol (Miralax (For Daily Use) -) 17 gm PO DAILY PRN PRN Reason: CONSTIPATION Last Admin: 05/17/18 09:38 Dose: 17 gm Tiotropium [place] (Spiriva -) 1 puff IH DAILY [facility] Last Admin: 05/17/18 09:22 Dose: 1 puff - Objective Vital Signs: Vital Signs Temperature 97.6 F 05/17/18 06:27 Pulse Rate 71 05/17/18 06:27 Respiratory Rate 20 05/17/18 06:27 Blood Pressure 110/60 05/17/18 06:27 O2 Sat by Pulse Oximetry (%) 97 05/16/18 20:38 Eyes: Yes: WNL, Conjunctiva Clear, EOM Intact HENT: Yes: WNL, Atraumatic, Normocephalic Neck: Yes: WNL, Supple, Trachea Midline Cardiovascular: Yes: WNL, Regular Rate and Rhythm Respiratory: Yes: Rhonchi Gastrointestinal: Yes: WNL, Normal Bowel Sounds Genitourinary: Yes: WNL Musculoskeletal: Yes: WNL Extremities: Yes: WNL Edema: No Integumentary: Yes: WNL Neurological: Yes: WNL, Alert, Oriented ...Motor Strength: WNL Psychiatric: Yes: WNL Labs: CBC, BMP 05/16/18 05:30 05/16/18 05:30 INR, PTT INR 1.28 (0.82-1.09) H 05/15/18 17:23 Assessment/Plan - Problems (1) Acute hypoxemic respiratory failure Code(s): J96.01 - ACUTE RESPIRATORY FAILURE WITH HYPOXIA (2) COPD exacerbation Code(s): J44.1 - CHRONIC OBSTRUCTIVE PULMONARY DISEASE W (ACUTE) EXACERBATION (3) HTN (hypertension) Assessment/Plan: on amlodipine Code(s): I10 - ESSENTIAL (PRIMARY) HYPERTENSION Qualifiers: Hypertension type: essential hypertension Qualified Code(s): I10 - Essential (primary) hypertension (4) Lung cancer Assessment/Plan: advanced CA Coronary angiogram in 2016: non-obstructive CAD. Follow ECHO for LVEF F/u lipids and TSH. Code(s): C34.90 - MALIGNANT NEOPLASM OF UNSP PART OF UNSP BRONCHUS OR LUNG Qualifiers: Laterality: left Lung location: upper lobe of lung Qualified Code(s): C34.12 - Malignant neoplasm of upper lobe, left bronchus or lung (5) Troponin I above reference range Code(s): R74.8 - ABNORMAL LEVELS OF OTHER SERUM ENZYMES (6) CAD (coronary artery disease) Assessment/Plan: EKG changes-->coronary angiogram in 2016 at [facility] (reportedly non- obstructive disease). Code(s): I25.10 - ATHSCL HEART DISEASE OF [place] CORONARY ARTERY W/O ANG PCTRS
--- NOTE | 2018-05-17 14:36 | ECHO ---
Name: SUAZO, JAIME Exam:Adult Echocardiogram Study Date: 05/17/2018 12:33 PM Reason For Study: WALL MOTION LVSF Height: 73 in Weight: 149 lb BSA: 1.9 m2 MMode/2D Measurements & Calculations IVSd: 1.0 cm Ao root diam: 3.4 cm LVIDd: 4.3 cm LA dimension: 3.8 cm LVIDs: 3.1 cm LVPWd: 0.94 cm EDV(Teich): 80.9 ml RV S Aamir: 12.3 cm/sec ESV(Teich): 37.3 ml Doppler Measurements & Calculations MV E max aamir: 42.0 cm/sec MR max aamir: 206.3 cm/sec MV A max aamir: 78.0 cm/sec MR max P.0 mmHg MV E/A: 0.54 TR max aamir: 219.1 cm/sec Med Peak E' Aamir: 3.3 cm/sec TR max P.2 mmHg Med E/e': 12.8 Lat Peak E' Aamir: 6.6 cm/sec Lat E/e': 6.4 Procedure A two-dimensional transthoracic echocardiogram with color flow and Doppler was performed. The study w as technically difficult with many images being suboptimal in quality. Left Ventricle The left ventricle is grossly normal size. Left ventricular systolic function is mild to moderately r educed. E/A reversal consistent with but not diagnostic of poor LV compliance. Regional wall motion abnormali ties cannot be excluded due to limited visualization. Septal motion is consistent with conduction abnormal ity. There is mild to moderate global hypokinesis of the left ventricle. Right Ventricle The right ventricle is not well visualized. Atria Normal left and right atrial size and function. Mitral Valve There is mild mitral valve thickening. There is no mitral valve stenosis. There is mild to moderate m itral regurgitation. Tricuspid Valve There is mild tricuspid valve thickening. There is no tricuspid stenosis. There is mild to moderate t ricuspid regurgitation. Right ventricular systolic pressure is normal. Aortic Valve The aortic valve is normal in structure and function. No hemodynamically significant valvular aortic stenosis. No aortic regurgitation is present. Pulmonic Valve The pulmonic valve is not well visualized. There is no pulmonic valvular stenosis. There is no pulmon ic valvular regurgitation. Great Vessels The aortic root is normal size. Pericardium/Pleura There is no pericardial effusion. Interpretation Summary The left ventricle is grossly normal size. There is mild to moderate tricuspid regurgitation. Right ventricular systolic pressure is normal. E/A reversal consistent with but not diagnostic of poor LV compliance Regional wall motion abnormalities cannot be excluded due to limited visualization. The study was technically difficult with many images being suboptimal in quality. Septal motion is consistent with conduction abnormality. There is mild to moderate global hypokinesis of the left ventricle. MD Patrick Cannon 05/17/2018 02:36 PM
[2018-05-17] MEDS: MONTELUKAST NA 10 MG TABLET PO SCH (21:22)
[2018-05-18] MEDS: methylPREDNISolone NA SUCC 40 MG/1 ML VIAL IVPB SCH ×3 (03:30→17:15)
[2018-05-18 06:22] LABS: BASO % 0.2 % (0-2.0); LYMPH % 7.1 % (8-40); MCH 32.1 pg (25.7-33.7); MCHC 34.4 g/dl (32.0-35.9); MEAN CELL VOLUME 93.4 fl (80-96); MEAN PLT VOLUME 6.3 fl (7.5-11.1); MONO % 10.2 % (3.8-10.2); NEUT % 82.5 % (42.8-82.8); PLATELET COUNT 191 K/MM3 (134-434); RDW 19.6 % (11.9-15.9); WHITE BLOOD COUNT 12.3 K/mm3 (4.0-10.0)
[2018-05-18 06:57] LABS: CHLORIDE 101 mmol/L (98-107); POTASSIUM 4.3 mmol/L (3.5-5.1); SODIUM 138 mmol/L (136-145)
[2018-05-18 07:12] LABS: ALBUMIN 2.3 g/dl (3.4-5.0); ALK PHOS 105 U/L (45-117); ANION GAP 7 (8-16); BILIRUBIN,TOTAL 0.5 mg/dL (0.2-1.0); BLOOD UREA NITROGEN 21 mg/dL (7-18); CALCIUM 8.1 mg/dL (8.5-10.1); CHOLESTEROL 101 mg/dL (50-200); CO2 30 mmol/L (21-32); CREATININE 0.6 mg/dL (0.7-1.3); GLUCOSE,RANDOM 110 mg/dL (74-106); HDL CHOLESTEROL 37 mg/dL (40-60); SGOT/AST 31 U/L (15-37); SGPT/ALT 35 U/L (12-78); TOT PROT 4.8 g/dl (6.4-8.2); TRIGLYCERIDES 69 mg/dL (35-160)
[2018-05-18] MEDS ORDERED: PT OWN MED DRAWER 7, Y5N ONE (09:14)
--- NOTE | 2018-05-18 09:17 | CONSULT ---
Consult Consult Specialty:: Endocrinology Referred by:: Dr Jara Reason for Consultation:: Abnormal TFT - History of Present Illness Chief Complaint: SOB History of Present Illness: This is a 78M with a PMH of non small cell lung cancer, HTN, and COPD who presents to the ER with worsening SOB. The patient stateed that for the past 2 days, he has had worsening SOB including a worsening productive cough with sputum. He states that he tried using his home inhalers without relief. He denies any symptoms of fever, chills, nausea, vomiting, CP, dysuria. He denies any blood in his sputum. Pt found to have abnormal TFT and referred for management. Pt denies any tremors, anxiety, palpitations or recent wt loss. No family h/o thyroid disorder. - History Source History Provided By: Patient, Medical Record - Past Medical History Cardio/Vascular: Yes: CAD (card.cath 2015-no stents, (pt had abnormal EKG and stress test)), HTN Pulmonary: Yes: Cancer (squamous cell cancer dg in , multiple sites, not candidate for surgical or radiation, started gemcitabine and carboplatin, currently on gemcitabine maintenance), COPD - Past Surgical History Past Surgical History: Yes: Cataract Removal, Hernia Repair (inguinal) - Alcohol/Substance Use Hx Alcohol Use: Yes (BEER DAILY) - Smoking History Smoking history: Former smoker (60 pack year smoking history) Have you smoked in the past 12 months: Yes If you are a former smoker, when did you quit?: 2017 - Social History ADL: Independent History of Recent Travel: No Home Medications - Allergies Allergies/Adverse Reactions: Allergies Allergy/AdvReac Type Severity Reaction Status Date / Time No Known Allergies Allergy Verified 05/15/18 16:29 - Home Medications Home Medications: Ambulatory Orders Inhaler, Assist Devices [Space Chamber Plus] 1 each MC Q4H PRN #1 spacer Prednisone [Deltasone] 20 mg PO DAILY #4 tablet 01/07/18 Family Disease History - Family Disease History Other Family History: No family h/o Thyroid disorder Review of Systems - Review of Systems Constitutional: reports: No Symptoms Eyes: reports: No Symptoms HENT: reports: No Symptoms Neck: reports: No Symptoms Cardiovascular: reports: No Symptoms Respiratory: reports: Cough Gastrointestinal: reports: Constipation Genitourinary: reports: No Symptoms Musculoskeletal: reports: No Symptoms Integumentary: reports: No Symptoms Neurological: reports: No Symptoms Endocrine: reports: No Symptoms Physical Exam Vital Signs: Vital Signs Temperature 97.5 F L 05/18/18 05:00 Pulse Rate 65 05/18/18 05:00 Respiratory Rate 20 05/18/18 05:00 Blood Pressure 133/89 05/18/18 05:00 O2 Sat by Pulse Oximetry (%) 98 05/17/18 20:47 Constitutional: Yes: No Distress, Calm Eyes: Yes: Conjunctiva Clear, EOM Intact HENT: Yes: Atraumatic, Normocephalic Neck: Yes: Supple, Trachea Midline Cardiovascular: Yes: Regular Rate and Rhythm Respiratory: Yes: Regular, Rhonchi (over left lung field) Gastrointestinal: Yes: Normal Bowel Sounds, Soft Musculoskeletal: Yes: WNL Extremities: Yes: WNL Edema: No Neurological: Yes: Alert, Oriented Labs: CBC, BMP 05/18/18 05:30 05/18/18 05:30 Assessment/Plan AP: Acute COPD exacerbation Possible PNA Sq Lung Ca on Chemo Abnormal TFT: Steroid effect vs Sick euthyroid vs Subclinical Hyperthyroidism On iv steroids RPT TFT with TSI and TPO No need for treatment of the abnormal TFT at this point Discussed with patient's daughter over the phone Will f/u
[2018-05-18] MEDS: PANTOPRAZOLE 40 MG TABLET (FP) PO SCH (09:20)
[2018-05-18] MEDS: TIOTROPIUM BROMIDE 18 MCG CAPSULES IH SCH (09:20)
[2018-05-18] MEDS: ASPIRIN COATED 81 MG TABLET.EC PO SCH (09:20)
[2018-05-18] MEDS: amLODIPine BESYLATE 5 MG TABLET (FP) PO SCH (09:21)
[2018-05-18] MEDS: ENOXAPARIN NA (PORCINE) 40 MG/0.4 ML DISP.SYRIN SQ SCH (09:21)
[2018-05-18] MEDS: ALBUTEROL SO4 0.083% IH SOL 2.5 MG/3 ML VIAL.NEB. NEB PRN ×3 (09:38→20:55)
--- NOTE | 2018-05-18 10:53 | PN ---
Progress Note (short form) - Note Progress Note: Consults appreciated feeling better less dyspnea moved his bowels three times yesterday Abnormal Lab Results 05/18/18 05/18/18 05:30 05:30 WBC 12.3 H RBC 3.10 L Hgb 10.0 L Hct 29.0 L RDW 19.6 H MPV 6.3 L Lymphocytes % 7.1 L D Anion Gap 7 L BUN 21 H Creatinine 0.6 L Random Glucose 110 H D Calcium 8.1 L Total Protein 4.8 L Albumin 2.3 L HDL Cholesterol 37 L Free T4 1.66 H Vital Signs Period Temp Pulse Resp BP Sys/Taylor Pulse Ox Last 24 Hr 97.3 F-98.7 F 43-98 18-20 98-133/56-89 95-98 s1s2 rrr lungs cta, better air entry b ut still scattered exp. wheezing abd soft NT no edema aaox3 HR on monitor ~80 -90 bigeminy, trigeminy, but pulse only 45/min (pvcs are not conducted) Acute COPD exacerbation progressive lung ca HTN +trop echo with decreased lvfnct steroid taper GI dvt prophylaxis cardiology f/up requested abnormal TFTs no h/o thyroid disease-will request endo f/up euthyroid sick syndr ? Problem List - Problems (1) Lung cancer Code(s): C34.90 - MALIGNANT NEOPLASM OF UNSP PART OF UNSP BRONCHUS OR LUNG Qualifiers: Laterality: left Lung location: upper lobe of lung Qualified Code(s): C34.12 - Malignant neoplasm of upper lobe, left bronchus or lung (2) HTN (hypertension) Code(s): I10 - ESSENTIAL (PRIMARY) HYPERTENSION Qualifiers: Hypertension type: essential hypertension Qualified Code(s): I10 - Essential (primary) hypertension (3) Pneumonia Code(s): J18.9 - PNEUMONIA, UNSPECIFIED ORGANISM Qualifiers: Lung location: upper lobe of lung (4) COPD exacerbation Code(s): J44.1 - CHRONIC OBSTRUCTIVE PULMONARY DISEASE W (ACUTE) EXACERBATION (5) Shortness of breath Code(s): R06.02 - SHORTNESS OF BREATH
--- NOTE | 2018-05-18 11:41 | PN ---
Progress Note, Physician Chief Complaint: Pt A&Ox3; still with dyspnea on minimal exertion; no palpitations or dizziness. History of Present Illness: The patient is a 78 yo white man with a PMH of non small cell lung cancer, HTN , and COPD who presents to the ER with worsening SOB. The patient states that for the past 2 days, he has had worsening SOB including a worsening productive cough with sputum. He states that he tried using his home inhalers without relief. He denies any symptoms of fever, chills, nausea, vomiting, CP, dysuria. He denies any blood in his sputum. - Current Medication List Current Medications: Active Medications Acetaminophen (Tylenol -) 650 mg PO Q4H PRN PRN Reason: PAIN OR FEVER Albuterol Sulfate (Ventolin 0.083% Nebulizer Soln -) 1 amp NEB Q4H PRN PRN Reason: SHORT OF BREATH/WHEEZING Last Admin: 05/18/18 09:38 Dose: 1 amp Amlodipine Besylate (Norvasc -) 5 mg PO DAILY [facility] Last Admin: 05/18/18 09:21 Dose: 5 mg Aspirin (Ecotrin -) 81 mg PO DAILY [facility] Last Admin: 05/18/18 09:20 Dose: 81 mg Enoxaparin Sodium (Lovenox -) 40 mg SQ DAILY [facility] Last Admin: 05/18/18 09:21 Dose: 40 mg Guaifenesin/Codeine Phosphate (Robitussin Ac -) 5 ml PO TID PRN PRN Reason: COUGH Last Admin: 05/17/18 20:04 Dose: 5 ml Methylprednisolone Sodium Succinate (Solu-Medrol -) 40 mg IVPB Q6H-IV [facility] Last Admin: 05/18/18 09:20 Dose: 40 mg Montelukast Sodium (Singulair -) 10 mg PO HS [facility] Last Admin: 05/17/18 21:22 Dose: 10 mg Pantoprazole Sodium (Protonix -) 40 mg PO DAILY [facility] Last Admin: 05/18/18 09:20 Dose: 40 mg Polyethylene Glycol (Miralax (For Daily Use) -) 17 gm PO DAILY PRN PRN Reason: CONSTIPATION Last Admin: 05/17/18 09:38 Dose: 17 gm Tiotropium [place] (Spiriva -) 1 puff IH DAILY [facility] Last Admin: 05/18/18 09:20 Dose: 1 puff - Objective Vital Signs: Vital Signs Temperature 97.8 F 05/18/18 09:00 Pulse Rate 45 L 05/18/18 09:00 Respiratory Rate 20 05/18/18 09:00 Blood Pressure 129/65 05/18/18 09:00 O2 Sat by Pulse Oximetry (%) 98 05/18/18 09:00 Constitutional: Yes: Calm Eyes: Yes: WNL HENT: Yes: WNL Neck: Yes: WNL Cardiovascular: Yes: Pulse Irregular, S1, S2 Respiratory: Yes: Diminished, Poor Air Entry, SOB Gastrointestinal: Yes: Soft ...Rectal Exam: Yes: Deferred Genitourinary: No: Anuria Musculoskeletal: Yes: Muscle Weakness Extremities: Yes: Cool Edema: No Peripheral Pulses WNL: Yes Integumentary: Yes: WNL Neurological: Yes: Alert, Oriented, Weakness Psychiatric: Yes: Alert, Oriented Labs: CBC, BMP 05/18/18 05:30 05/18/18 05:30 INR, PTT INR 1.28 (0.82-1.09) H 05/15/18 17:23 Abnormal Lab Results 05/18/18 05/18/18 05:30 05:30 WBC 12.3 H RBC 3.10 L Hgb 10.0 L Hct 29.0 L RDW 19.6 H MPV 6.3 L Lymphocytes % 7.1 L D Anion Gap 7 L BUN 21 H Creatinine 0.6 L Random Glucose 110 H D Calcium 8.1 L Total Protein 4.8 L Albumin 2.3 L HDL Cholesterol 37 L Free T4 1.66 H Problem List - Problems (1) Acute hypoxemic respiratory failure Code(s): J96.01 - ACUTE RESPIRATORY FAILURE WITH HYPOXIA (2) COPD exacerbation Code(s): J44.1 - CHRONIC OBSTRUCTIVE PULMONARY DISEASE W (ACUTE) EXACERBATION (3) HTN (hypertension) Assessment/Plan: on amlodipine, though will now start metoprolol for systolic CHF and frequent ectopy; lisinopril may also be started for systolic CHF (if BP drops too much, would stop amlodipine). Code(s): I10 - ESSENTIAL (PRIMARY) HYPERTENSION Qualifiers: Hypertension type: essential hypertension Qualified Code(s): I10 - Essential (primary) hypertension (4) Lung cancer Assessment/Plan: advanced CA F/u with oncologist. Code(s): C34.90 - MALIGNANT NEOPLASM OF UNSP PART OF UNSP BRONCHUS OR LUNG Qualifiers: Laterality: left Lung location: upper lobe of lung Qualified Code(s): C34.12 - Malignant neoplasm of upper lobe, left bronchus or lung (5) Troponin I above reference range Assessment/Plan: likely demand ischemia from COPD, CA, CHF. Code(s): R74.8 - ABNORMAL LEVELS OF OTHER SERUM ENZYMES (6) CAD (coronary artery disease) Assessment/Plan: EKG changes-->coronary angiogram in 2016 at [facility] (reportedly non- obstructive disease). Code(s): I25.10 - ATHSCL HEART DISEASE OF [place] CORONARY ARTERY W/O ANG PCTRS (7) PVCs (premature ventricular contractions) Assessment/Plan: Pt with frequent PVCs, with ventricular bigeminy and trigeminy at times. No hx bronchial asthma; he has been on bronchodilators for COPD for the past 4 years. Will give trial of metoprolol IV; if tolerated (no wheezing, increased SOB), will start oral metoprolol for systolic CHF (ECHO notes mild to moderately decreased LVEF; diastolic dysfunction) and arrhythmia. May also start lisinopril, which should help both with CHF and overall cardiac stability. Thyroid may also be contributing to the ectopy; f/u Free T3 and T4. Code(s): I49.3 - VENTRICULAR PREMATURE DEPOLARIZATION (8) Thyroid disease Code(s): E07.9 - DISORDER OF THYROID, UNSPECIFIED
--- NOTE | 2018-05-18 12:13 | PN ---
Progress Note (short form) - Note Progress Note: PULMONARY Still short of breath with cough and wheezing but slightly better than yesterday. Vital Signs Period Temp Pulse Resp BP Sys/Taylor Pulse Ox Last 24 Hr 97.3 F-98.7 F 43-98 18-20 98-133/56-89 95-98 Gen: mildly tachypneic at rest Heart: RRR Lung: scattered rhonchi, distant breath sounds Abd: soft, nontender Ext: no edema CBC, BMP 05/18/18 05:30 05/18/18 05:30 Active Medications Acetaminophen (Tylenol -) 650 mg PO Q4H PRN PRN Reason: PAIN OR FEVER Albuterol Sulfate (Ventolin 0.083% Nebulizer Soln -) 1 amp NEB Q4H PRN PRN Reason: SHORT OF BREATH/WHEEZING Last Admin: 05/18/18 09:38 Dose: 1 amp Amlodipine Besylate (Norvasc -) 5 mg PO DAILY [facility] Last Admin: 05/18/18 09:21 Dose: 5 mg Aspirin (Ecotrin -) 81 mg PO DAILY [facility] Last Admin: 05/18/18 09:20 Dose: 81 mg Enoxaparin Sodium (Lovenox -) 40 mg SQ DAILY [facility] Last Admin: 05/18/18 09:21 Dose: 40 mg Guaifenesin/Codeine Phosphate (Robitussin Ac -) 5 ml PO TID PRN PRN Reason: COUGH Last Admin: 05/17/18 20:04 Dose: 5 ml Methylprednisolone Sodium Succinate (Solu-Medrol -) 40 mg IVPB Q6H-IV [facility] Last Admin: 05/18/18 09:20 Dose: 40 mg Metoprolol Tartrate (Lopressor Injection -) 2.5 mg IVPUSH ONCE ONE Stop: 05/18/18 11:48 Montelukast Sodium (Singulair -) 10 mg PO HS [facility] Last Admin: 05/17/18 21:22 Dose: 10 mg Pantoprazole Sodium (Protonix -) 40 mg PO DAILY [facility] Last Admin: 05/18/18 09:20 Dose: 40 mg Polyethylene Glycol (Miralax (For Daily Use) -) 17 gm PO DAILY PRN PRN Reason: CONSTIPATION Last Admin: 05/17/18 09:38 Dose: 17 gm Tiotropium [place] (Spiriva -) 1 puff IH DAILY [facility] Last Admin: 05/18/18 09:20 Dose: 1 puff A/P Acute Hypoxic Respiratory Failure Acute COPD Exacerbation Lung Ca Lung Nodules +Troponins/CAD likely Demand Ischemia LV Systolic/Diastolic Dysfunction HTN - can decrease medrol to q8h - inhaled bronchodilators - o2 to keep Spo2 >90% - ASA, beta alesha as tolerated - DVT prophylaxis
[2018-05-18] MEDS ORDERED: METOPROLOL TARTRATE 5 MG/5 ML VIAL IVPUSH ONE (13:00)
[2018-05-18] MEDS: MONTELUKAST NA 10 MG TABLET PO SCH (21:09)
[2018-05-19] MEDS: ALBUTEROL SO4 0.083% IH SOL 2.5 MG/3 ML VIAL.NEB. NEB PRN ×3 (01:45→09:47)
[2018-05-19] MEDS: methylPREDNISolone NA SUCC 40 MG/1 ML VIAL IVPB SCH ×2 (01:45→10:17)
--- NOTE | 2018-05-19 08:36 | PN ---
Progress Note (short form) - Note Progress Note: Feeling much better, ready to go home Vital Signs Period Temp Pulse Resp BP Sys/Taylor Pulse Ox Last 24 Hr 97.4 F-98.4 F 85-96 20-22 127-137/69-91 98 s1s2 rrr vent bigeminy on monitor lungs cta, better air entry abd soft NT no edema aaox3 Acute COPD exacerbation better progressive lung ca HTN +trop echo with decreased lvfnct steroid taper GI dvt prophylaxis abnormal TFTs no h/o thyroid disease-will request endo f/up euthyroid sick syndr ? needs outpt follow up can switch to oral steroids dc planning if ok with cardiology today Problem List - Problems (1) Lung cancer Code(s): C34.90 - MALIGNANT NEOPLASM OF UNSP PART OF UNSP BRONCHUS OR LUNG Qualifiers: Laterality: left Lung location: upper lobe of lung Qualified Code(s): C34.12 - Malignant neoplasm of upper lobe, left bronchus or lung (2) HTN (hypertension) Code(s): I10 - ESSENTIAL (PRIMARY) HYPERTENSION Qualifiers: Hypertension type: essential hypertension Qualified Code(s): I10 - Essential (primary) hypertension (3) Pneumonia Code(s): J18.9 - PNEUMONIA, UNSPECIFIED ORGANISM Qualifiers: Lung location: upper lobe of lung (4) COPD exacerbation Code(s): J44.1 - CHRONIC OBSTRUCTIVE PULMONARY DISEASE W (ACUTE) EXACERBATION (5) Shortness of breath Code(s): R06.02 - SHORTNESS OF BREATH
--- NOTE | 2018-05-19 09:09 | PN ---
Progress Note (short form) - Note Progress Note: C/O SOB Vital Signs Period Temp Pulse Resp BP Sys/Taylor Pulse Ox Last 24 Hr 97.4 F-98.4 F 85-96 20-22 127-137/69-91 98 PE: AOx3 Neck: Supple, No JVD HEENT: EOMI Lungs: +Rhonchi left lung field CVs: S1S2 Abd: Benign EXt: trace edema Neuro: No focal deficit CMP Sodium 138 mmol/L (136-145) 05/18/18 05:30 Potassium 4.3 mmol/L (3.5-5.1) 05/18/18 05:30 Chloride 101 mmol/L (98-107) 05/18/18 05:30 Carbon Dioxide 30 mmol/L (21-32) 05/18/18 05:30 Anion Gap 7 (8-16) L 05/18/18 05:30 BUN 21 mg/dL (7-18) H 05/18/18 05:30 Creatinine 0.6 mg/dL (0.7-1.3) L 05/18/18 05:30 Creat Clearance w eGFR > 60 (>60) 05/18/18 05:30 Random Glucose 110 mg/dL (74-106) H D 05/18/18 05:30 Lactic Acid 1.9 mmol/L (0.0-2.0) 05/15/18 18:45 Calcium 8.1 mg/dL (8.5-10.1) L 05/18/18 05:30 Total Bilirubin 0.5 mg/dL (0.2-1.0) 05/18/18 05:30 AST 31 U/L (15-37) D 05/18/18 05:30 ALT 35 U/L (12-78) D 05/18/18 05:30 Alkaline Phosphatase 105 U/L (45-117) D 05/18/18 05:30 Creatine Kinase 62 IU/L (39-308) 05/16/18 05:30 Troponin I 0.20 ng/ml (0.00-0.05) H D 05/16/18 05:30 Total Protein 4.8 g/dl (6.4-8.2) L 05/18/18 05:30 Albumin 2.3 g/dl (3.4-5.0) L 05/18/18 05:30 Triglycerides 69 mg/dL (35-160) 05/18/18 05:30 Cholesterol 101 mg/dL (50-200) 05/18/18 05:30 Total LDL Cholesterol 57 mg/dL (5-100) 05/18/18 05:30 HDL Cholesterol 37 mg/dL (40-60) L 05/18/18 05:30 TSH 0.15 uIU/ml (0.358-3.74) L D 05/19/18 05:30 Free T4 1.66 ng/dl (0.76-1.16) H 05/18/18 05:30 Free T3 2.5 pg/ml (2.0-4.4) 05/18/18 05:30 Current Medications Generic Name Dose Route Start Last Admin Trade Name Freq PRN Reason Stop Dose Admin Acetaminophen 650 mg 05/15/18 22:33 Tylenol - PO Q4H PRN PAIN OR FEVER Albuterol Sulfate 1 amp 05/15/18 22:32 05/19/18 06:45 Ventolin 0.083% Nebulizer Soln - NEB 1 amp Q4H PRN Administration SHORT OF BREATH/WHEEZING Amlodipine Besylate 5 mg 05/16/18 10:00 05/18/18 09:21 Norvasc - PO 5 mg DAILY [facility] Administration Aspirin 81 mg 05/16/18 10:00 05/18/18 09:20 Ecotrin - PO 81 mg DAILY [facility] Administration Enoxaparin Sodium 40 mg 05/16/18 10:00 05/18/18 09:21 Lovenox - SQ 40 mg DAILY [facility] Administration Guaifenesin/Codeine Phosphate 5 ml 05/16/18 08:24 05/17/18 20:04 Robitussin Ac - PO 5 ml TID PRN Administration COUGH Methylprednisolone Sodium Succinate 40 mg 05/18/18 18:00 05/19/18 01:45 Solu-Medrol - IVPB 40 mg Q8H-IV [facility] Administration Montelukast Sodium 10 mg 05/16/18 22:00 05/18/18 21:09 Singulair - PO 10 mg HS [facility] Administration Pantoprazole Sodium 40 mg 05/16/18 10:00 05/18/18 09:20 Protonix - PO 40 mg DAILY [facility] Administration Polyethylene Glycol 17 gm 05/17/18 08:50 05/17/18 09:38 Miralax (For Daily Use) - PO 17 gm DAILY PRN Administration CONSTIPATION Tiotropium [place] 1 puff 05/16/18 10:00 05/18/18 09:20 Spiriva - IH 1 puff DAILY [facility] Administration AP: Acute COPD exacerbation Possible PNA Sq Lung Ca on Chemo Abnormal TFT: Steroid effect vs Sick euthyroid vs Subclinical Hyperthyroidism On iv steroids RPT TFT with TSI and TPO: TSH 0.15, FT4 by dialysis, TSI pending No need for treatment of the abnormal TFT at this point Discussed with patient's daughter over the phone I will be away until May 30, Dr Eric is covering Will f/u
[2018-05-19] MEDS: TIOTROPIUM BROMIDE 18 MCG CAPSULES IH SCH (10:17)
[2018-05-19] MEDS: ENOXAPARIN NA (PORCINE) 40 MG/0.4 ML DISP.SYRIN SQ SCH (10:17)
[2018-05-19] MEDS: amLODIPine BESYLATE 5 MG TABLET (FP) PO SCH (10:18)
[2018-05-19] MEDS: PANTOPRAZOLE 40 MG TABLET (FP) PO SCH (10:18)
[2018-05-19] MEDS: ASPIRIN COATED 81 MG TABLET.EC PO SCH (10:18)
[2018-05-19] MEDS ORDERED: METOPROLOL TARTRATE 25 MG TABLET (FP) PO ONE (11:00)
--- NOTE | 2018-05-19 11:05 | PN ---
Progress Note, Physician History of Present Illness: pulmonary alert,feeling better,less dyspneic. - Current Medication List Current Medications: Active Medications Acetaminophen (Tylenol -) 650 mg PO Q4H PRN PRN Reason: PAIN OR FEVER Albuterol Sulfate (Ventolin 0.083% Nebulizer Soln -) 1 amp NEB Q4H PRN PRN Reason: SHORT OF BREATH/WHEEZING Last Admin: 05/19/18 09:47 Dose: 1 amp Amlodipine Besylate (Norvasc -) 5 mg PO DAILY [facility] Last Admin: 05/19/18 10:18 Dose: 5 mg Aspirin (Ecotrin -) 81 mg PO DAILY [facility] Last Admin: 05/19/18 10:18 Dose: 81 mg Enoxaparin Sodium (Lovenox -) 40 mg SQ DAILY [facility] Last Admin: 05/19/18 10:17 Dose: 40 mg Guaifenesin/Codeine Phosphate (Robitussin Ac -) 5 ml PO TID PRN PRN Reason: COUGH Last Admin: 05/17/18 20:04 Dose: 5 ml Methylprednisolone Sodium Succinate (Solu-Medrol -) 40 mg IVPB Q8H-IV [facility] Last Admin: 05/19/18 10:17 Dose: 40 mg Metoprolol Tartrate (Lopressor -) 12.5 mg PO BID [facility] Metoprolol Tartrate (Lopressor -) 12.5 mg PO ONCE ONE Stop: 05/19/18 11:01 Montelukast Sodium (Singulair -) 10 mg PO HS [facility] Last Admin: 05/18/18 21:09 Dose: 10 mg Pantoprazole Sodium (Protonix -) 40 mg PO DAILY [facility] Last Admin: 05/19/18 10:18 Dose: 40 mg Polyethylene Glycol (Miralax (For Daily Use) -) 17 gm PO DAILY PRN PRN Reason: CONSTIPATION Last Admin: 05/17/18 09:38 Dose: 17 gm Tiotropium [place] (Spiriva -) 1 puff IH DAILY [facility] Last Admin: 05/19/18 10:17 Dose: 1 puff - Objective Vital Signs: Vital Signs Temperature 97.6 F 05/19/18 06:00 Pulse Rate 96 H 05/19/18 06:00 Respiratory Rate 22 05/19/18 06:00 Blood Pressure 131/74 05/19/18 06:00 O2 Sat by Pulse Oximetry (%) 98 05/18/18 20:46 Constitutional: Yes: Well Nourished, Calm, Other (mildly dyspneic) Eyes: Yes: WNL HENT: Yes: WNL Neck: Yes: WNL Cardiovascular: Yes: Regular Rate and Rhythm, S1, S2 Respiratory: Yes: Diminished Gastrointestinal: Yes: Normal Bowel Sounds, Soft Extremities: Yes: WNL Edema: No Problem List - Problems (1) Acute hypoxemic respiratory failure Code(s): J96.01 - ACUTE RESPIRATORY FAILURE WITH HYPOXIA (2) COPD exacerbation Code(s): J44.1 - CHRONIC OBSTRUCTIVE PULMONARY DISEASE W (ACUTE) EXACERBATION (3) HTN (hypertension) Code(s): I10 - ESSENTIAL (PRIMARY) HYPERTENSION Qualifiers: Hypertension type: essential hypertension Qualified Code(s): I10 - Essential (primary) hypertension (4) Lung cancer Code(s): C34.90 - MALIGNANT NEOPLASM OF UNSP PART OF UNSP BRONCHUS OR LUNG Qualifiers: Laterality: left Lung location: upper lobe of lung Qualified Code(s): C34.12 - Malignant neoplasm of upper lobe, left bronchus or lung (5) Shortness of breath Code(s): R06.02 - SHORTNESS OF BREATH (6) Troponin I above reference range Code(s): R74.8 - ABNORMAL LEVELS OF OTHER SERUM ENZYMES Assessment/Plan IMP ACUTE HYPOXEMIC RESPIRATORY FAILURE IMPROVING COPD EXACERBATION IMPROVING LUNG CA SQUAMOUS CELL ON GEMCITABINE BILATERAL PULMONARY NODULES + TROPONINS HYPONATREMIA CORRECTED ASHD HTN PLAN O2 INHALED BRONCHODILATORS STEROIDS ABX MONITOR LYTES,NA AMBULATORY O2 SAT OUTPATIENT PULMONARY REHAB POST DISCHARGE DR BERNARDO Problem List - Problems (1) Acute hypoxemic respiratory failure Code(s): J96.01 - ACUTE RESPIRATORY FAILURE WITH HYPOXIA (2) COPD exacerbation Code(s): J44.1 - CHRONIC OBSTRUCTIVE PULMONARY DISEASE W (ACUTE) EXACERBATION (3) HTN (hypertension) Code(s): I10 - ESSENTIAL (PRIMARY) HYPERTENSION Qualifiers: Hypertension type: essential hypertension Qualified Code(s): I10 - Essential (primary) hypertension (4) Lung cancer Code(s): C34.90 - MALIGNANT NEOPLASM OF UNSP PART OF UNSP BRONCHUS OR LUNG Qualifiers: Laterality: left Lung location: upper lobe of lung Qualified Code(s): C34.12 - Malignant neoplasm of upper lobe, left bronchus or lung (5) Shortness of breath Code(s): R06.02 - SHORTNESS OF BREATH (6) Troponin I above reference range Code(s): R74.8 - ABNORMAL LEVELS OF OTHER SERUM ENZYMES
[2018-05-19 11:10] VITALS: BP 159/88; TEMP 98
[2018-05-19 11:49] VITALS: PULSE 105
--- NOTE | 2018-05-19 12:51 | PN ---
Progress Note, Physician History of Present Illness: The patient is a 78 yo white man with a PMH of non small cell lung cancer, HTN , and COPD who presents to the ER with worsening SOB. The patient states that for the past 2 days, he has had worsening SOB including a worsening productive cough with sputum. He states that he tried using his home inhalers without relief. He denies any symptoms of fever, chills, nausea, vomiting, CP, dysuria. He denies any blood in his sputum. - History Source History Provided By: Patient, Medical Record - Past Medical History Cardio/Vascular: Yes: CAD (card.cath 2016-no stents, (pt had abnormal EKG and stress test)), HTN Pulmonary: Yes: Cancer (squamous cell cancer dg in , multiple sites, not candidate for surgical or radiation, started gemcitabine and carboplatin, currently on gemcitabine maintenance), COPD - Objective Vital Signs: Vital Signs Temperature 98.0 F 05/19/18 10:00 Pulse Rate 105 H 05/19/18 11:48 Respiratory Rate 20 05/19/18 10:00 Blood Pressure 159/88 05/19/18 10:00 O2 Sat by Pulse Oximetry (%) 94 L 05/19/18 11:48 Eyes: Yes: WNL, Conjunctiva Clear, EOM Intact HENT: Yes: WNL, Atraumatic, Normocephalic Neck: Yes: WNL, Supple, Trachea Midline Cardiovascular: Yes: WNL, Regular Rate and Rhythm Respiratory: Yes: Diminished Gastrointestinal: Yes: WNL, Normal Bowel Sounds Genitourinary: Yes: WNL Musculoskeletal: Yes: WNL Extremities: Yes: WNL Edema: No Integumentary: Yes: WNL Neurological: Yes: WNL, Alert, Oriented ...Motor Strength: WNL Psychiatric: Yes: WNL Labs: CBC, BMP 05/18/18 05:30 05/18/18 05:30 INR, PTT INR 1.28 (0.82-1.09) H 05/15/18 17:23 Assessment/Plan - Problems (1) Acute hypoxemic respiratory failure Code(s): J96.01 - ACUTE RESPIRATORY FAILURE WITH HYPOXIA (2) COPD exacerbation Code(s): J44.1 - CHRONIC OBSTRUCTIVE PULMONARY DISEASE W (ACUTE) EXACERBATION (3) HTN (hypertension) Assessment/Plan: on amlodipine, though will now start metoprolol for systolic CHF and frequent ectopy; lisinopril may also be started for systolic CHF (if BP drops too much, would stop amlodipine). Code(s): I10 - ESSENTIAL (PRIMARY) HYPERTENSION Qualifiers: Hypertension type: essential hypertension Qualified Code(s): I10 - Essential (primary) hypertension (4) Lung cancer Assessment/Plan: advanced CA F/u with oncologist. Code(s): C34.90 - MALIGNANT NEOPLASM OF UNSP PART OF UNSP BRONCHUS OR LUNG Qualifiers: Laterality: left Lung location: upper lobe of lung Qualified Code(s): C34.12 - Malignant neoplasm of upper lobe, left bronchus or lung (5) Troponin I above reference range Assessment/Plan: likely demand ischemia from COPD, CA, CHF. Code(s): R74.8 - ABNORMAL LEVELS OF OTHER SERUM ENZYMES (6) CAD (coronary artery disease) Assessment/Plan: EKG changes-->coronary angiogram in 2016 at [facility] (reportedly non- obstructive disease). Code(s): I25.10 - ATHSCL HEART DISEASE OF [place] CORONARY ARTERY W/O ANG PCTRS (7) PVCs (premature ventricular contractions) Assessment/Plan: Pt with frequent PVCs, with ventricular bigeminy and trigeminy at times. No hx bronchial asthma; he has been on bronchodilators for COPD for the past 4 years. Will give trial of metoprolol IV; if tolerated (no wheezing, increased SOB), will start oral metoprolol for systolic CHF (ECHO notes mild to moderately decreased LVEF; diastolic dysfunction) and arrhythmia. May also start lisinopril, which should help both with CHF and overall cardiac stability. Thyroid may also be contributing to the ectopy; f/u Free T3 and T4. Code(s): I49.3 - VENTRICULAR PREMATURE DEPOLARIZATION (8) Thyroid disease Code(s): E07.9 - DISORDER OF THYROID, UNSPECIFIED
[2018-05-19] MEDS ORDERED: METOPROLOL TARTRATE 25 MG TABLET (FP) PO SCH (22:00)
[2018-05-22 14:13] LABS: THYROID STIM IMMUNOGLOBULIN <0.10 IU/L (0.00-0.55)
== END 2018-05-19 12:31 | disposition home or self-care (01) | DRG 189 ==
LOC: JER 16:18 → JERBED 19:41 → J4W 05-16 01:27
PROVIDERS: ADMIT Internal Medicine; ATTEND Internal Medicine
DX: J96.01 Acute respiratory failure with hypoxia (principal); I50.23 Acute on chronic systolic (congestive) heart failure; J18.9 Pneumonia, unspecified organism; J44.1 Chronic obstructive pulmonary disease with (acute) exacerbation; C34.12 Malignant neoplasm of upper lobe, left bronchus or lung; I24.8 Other forms of acute ischemic heart disease; E87.1 Hypo-osmolality and hyponatremia; C34.90 Malignant neoplasm of unspecified part of unspecified bronchus or lung; I11.0 Hypertensive heart disease with heart failure; Z87.891 Personal history of nicotine dependence; R00.0 Tachycardia, unspecified; K59.00 Constipation, unspecified; I25.10 Atherosclerotic heart disease of native coronary artery without angina pectoris; F41.9 Anxiety disorder, unspecified; D64.9 Anemia, unspecified; R74.8 Abnormal levels of other serum enzymes; I49.3 Ventricular premature depolarization; R91.8 Other nonspecific abnormal finding of lung field; E07.9 Disorder of thyroid, unspecified
CPT/HCPCS: 36415; 36600; 71045-TC-FY; 71275-TC; 80053; 80061; 81003; 81015; 82550; 82803; 83605; 83721; 84439; 84443; 84445; 84481; 84484; 85025; 85610; 85730; 86376; 86850; 86900; 86901; 87040; 87070; 87086; 87205; 87899; 93005; 93010; 93306-TC; 94640; 94761; 99285-25; J7030; J7620

== ENCOUNTER 2019-04-18 21:35 | Inpatient (IN) | payer OTHER ==
[2019-04-18] MEDS ORDERED: ALBUTEROL SO4 2.5/IPRATROPIUM 0.5 INH SOL 3 ML VIAL.NEB. NEB ONE ×4 (22:17→22:34)
[2019-04-18] MEDS ORDERED: methylPREDNISolone NA SUCC 125 MG/2 ML VIAL IVPB ONE (22:17)
[2019-04-18 22:26] VITALS: BMI 16.0
[2019-04-18] MEDS ORDERED: methylPREDNISolone NA SUCC 125 MG/2 ML VIAL ONE (22:34)
[2019-04-18 23:15] LABS: VENOUS PH 7.29 (7.31-7.41); VENOUS PO2 70.1 mmHg (30-40)
[2019-04-18 23:16] LABS: BASO % 1.5 % (0-2.0); EOS % 6.9 % (0-4.5); HEMATOCRIT 42.7 % (35.4-49); HEMOGLOBIN 13.6 GM/dL (11.7-16.9); LYMPH % 10.8 % (8-40); MCH 28.3 pg (25.7-33.7); MEAN CELL VOLUME 88.4 fl (80-96); MONO % 8.1 % (3.8-10.2); NEUT % 72.7 % (42.8-82.8); PLATELET COUNT 441 K/MM3 (134-434); RBC 4.82 M/mm3 (4.00-5.60); RDW 14.5 % (11.9-15.9); WHITE BLOOD COUNT 11.2 K/mm3 (4.0-10.0)
[2019-04-18 23:18] LABS: VENOUS PC02 74.1 mmHg (41-51)
[2019-04-18 23:20] LABS: MEAN PLT VOLUME 5.8 fl (7.5-11.1)
--- NOTE | 2019-04-18 23:49 | PDOC ---
Documentation entered by Cynthia Werner SCRIBE, acting as scribe for Sophia Rider DO. Sophia Rider DO: This documentation has been prepared by the Alphonso valdes Sammi, SCRIBE, under my direction and personally reviewed by me in its entirety. I confirm that the documentation accurately reflects all work, treatment, procedures, and medical decision making performed by me. History of Present Illness - General Stated Complaint: DIFF BREATHING Time Seen by Provider: 04/18/19 22:05 - History of Present Illness Initial Comments: 04/18/19 22:26 The patient is a 79 year old male, with a significant PMH of HTN, COPD, lung CA , heart failure, thyroidism, who was BIBA to the emergency department for evaluation of acute onset SOB. The patient states he was running errands today when he began to feel SOB that did not subside. The patient is on intermittent home O2 with nasal cannula. He reports he did not utilize his COPD medications prior to calling EMS. The patient arrived to the ED by EMS on a nonrebreather with mild conversational dyspnea. The patient presents continuing to complain of SOB. He notes a chronic cough producing green sputum. Patient's last bowel movement today. The patient notes last infusion for his lung cancer was yesterday. The patient denies chest pain, headache and dizziness. Denies fever, nausea, vomit, diarrhea and constipation. Denies dysuria, frequency, urgency and hematuria. Allergies: NKA Past surgical history: None reported Social history: Former smoker (quit May 2017) PCP: Yonny Concession Attendant: Yani Past History - Past Medical History Allergies/Adverse Reactions: Allergies Allergy/AdvReac Type Severity Reaction Status Date / Time No Known Allergies Allergy Verified 04/18/19 22:27 Home Medications: Ambulatory Orders Alprazolam [Xanax] 0.25 mg PO Q12H PRN #20 tablet MDD 2 05/19/18 Amlodipine Besylate [Norvasc -] 5 mg PO DAILY tablet 05/19/18 Aspirin Coated [Ecotrin -] 81 mg PO DAILY tablet.ec 05/19/18 Guaifenesin AC [Robitussin AC -] 5 ml PO TID PRN liquid MDD 15ml 05/19/18 Methylprednisolone [Medrol Dose Nas] 4 mg PO ASDIR #21 tablet 05/19/18 Metoprolol Tartrate [Lopressor -] 12.5 mg PO BID #60 tablet 05/19/18 Montelukast Na [Singulair -] 10 mg PO HS #30 tablet 05/19/18 Pantoprazole Sodium [Protonix -] 40 mg PO DAILY #14 tablet.ec 05/19/18 Polyethylene Glycol 3350 [Miralax 119 gm Btl -] 17 gm PO DAILY PRN bottle 05/19 Tiotropium [place] [Spiriva] 1 puff IH DAILY #30 cap 05/19/18 Cancer: Yes (LUNG ,SMALL CELL) COPD: Yes HTN: Yes - Surgical History Abdominal Surgery: Yes (ING.HERNIA) Lung Surgery: Yes (BIOPSY AND CHEST TUBE LT) - Suicide/Smoking/Psychosocial Hx Smoking History: Former smoker (60 pack year smoking history) Have you smoked in the past 12 months: Yes If you are a former smoker, when did you quit?: 2016 'Breaking Loose' booklet given: 01/07/18 Hx Alcohol Use: Yes (BEER DAILY) Drug/Substance Use Hx: No Substance Use Type: None Review of Systems - Review of Systems Comments:: 04/18/19 22:30 GENERAL/CONSTITUTIONAL: (+)Mild chills . No fever. No weakness. HEAD, EYES, EARS, NOSE AND THROAT: No change in vision. No ear pain or discharge. No sore throat. CARDIOVASCULAR: No chest pain or shortness of breath. RESPIRATORY: (+)SOB (+)Chronic cough producing green sputum. GASTROINTESTINAL: No nausea, vomiting, diarrhea or constipation. GENITOURINARY: No dysuria, frequency, or change in urination. MUSCULOSKELETAL: No joint or muscle swelling or pain. No neck or back pain. SKIN: No rash NEUROLOGIC: No headache, vertigo, loss of consciousness, or change in strength/ sensation. ENDOCRINE: No increased thirst. No abnormal weight change. HEMATOLOGIC/LYMPHATIC: No anemia, easy bleeding, or history of blood clots. ALLERGIC/IMMUNOLOGIC: No hives or skin allergy. *Physical Exam - Vital Signs Last Vital Signs Temp Pulse Resp BP Pulse Ox 98.7 F 88 22 H 132/77 96 04/18/19 22:01 04/18/19 22:01 04/18/19 22:01 04/18/19 22:01 04/18/19 22:01 - Physical Exam Comments: 04/18/19 22:33 GENERAL: (+)thin. Awake, alert, and fully oriented, in no acute distress HEAD: No signs of trauma EYES: PERRLA, EOMI, sclera anicteric, conjunctiva clear ENT: (+)Dry mucous membrane. Auricles normal inspection, hearing grossly normal , nares patent, oropharynx clear without exudates. NECK: Normal ROM, supple, no lymphadenopathy, JVD, or masses LUNGS: (+)tachypnic. (+)wheezing bilaterally, diminished at left base (lung CA) . No crakles, rales, or rhonchi. HEART: Regular rate and rhythm, normal S1 and S2, no murmurs, rubs or gallops ABDOMEN: Soft, nontender, normoactive bowel sounds. No guarding, no rebound. No masses EXTREMITIES: Normal range of motion, no edema. No clubbing or cyanosis. No cords, erythema, or tenderness NEUROLOGICAL: Cranial nerves II through XII grossly intact. Normal speech. SKIN: Warm, Dry, normal turgor, no rashes or lesions noted. Heart Score/ECG Review - ECG Intrepretation Comment:: 04/18/19 23:57 sinus at 81, L axis, nl interval, q waves septally which are age indeterminate ED Treatment Course - LABORATORY CBC & Chemistry Diagram: 04/18/19 23:09 04/18/19 23:09 - ADDITIONAL ORDERS Additional order review: Laboratory Results 04/18/19 23:09 VBG pH 7.29 L POC VBG pCO2 74.1 H* POC VBG pO2 70.1 H VBG HCO3 34.8 H VBG O2 Sat (Ke) 90.8 H VBG Base Excess 5.9 H 04/18/19 23:09 RBC 4.82 MCV 88.4 MCHC 32.0 RDW 14.5 D MPV 5.8 L Neutrophils % 72.7 Lymphocytes % 10.8 D Monocytes % 8.1 Eosinophils % 6.9 H D Basophils % 1.5 D - RADIOLOGY Radiology Studies Ordered: Category Date Time Status CHEST X-RAY PORTABLE* [RAD] Stat Radiology 04/18/19 22:17 Ordered - Medications Given in the ED: ED Medications Discontinued Medications Generic Name Dose Route Start Last Admin Trade Name Freq PRN Reason Stop Dose Admin Albuterol/Ipratropium 1 amp 04/18/19 22:17 04/18/19 22:20 Duoneb - NEB 04/18/19 22:18 1 amp ONCE ONE Administration Albuterol/Ipratropium 1 amp 04/18/19 22:17 04/18/19 22:40 Duoneb - NEB 04/18/19 22:18 1 amp ONCE ONE Administration Methylprednisolone Sodium Succinate 125 mg 04/18/19 22:17 04/18/19 23:14 Solu-Medrol - IVPB 04/18/19 22:18 125 mg ONCE ONE Administration Medical Decision Making - Medical Decision Making 04/18/19 23:34 a/p: 79yo male with hx of COPD and lung ca currently on immunotherapy at [facility] [place] with acute worsening of sob -used o2 at home and not inhalers when he became sob -pt with diffuse wheezing, but diminished L base -no change in cough -no fevers at home, chills today -pt with tachypnea - wheezing, sob -no cp -no abd pain, no n/v/d, no dysuria -concern for copd exacerbation -will send labs, vbg -pt arrives on a nrb mask - will remove and place on bipap and give nebs, steroids -will monitor and reassess -Pulm - Dr. Lomeli -PMD: Dr. Echevarria 04/19/19 00:41 copd exacerbation no pna on xray , did cut off end of film, will repeat pt with neg trop pt with hypercapnic resp failure, placed on bipap feeling mildly better after nebs will need admission pt still tachypnic microblog sent to [facility] 04/19/19 01:32 case discussed with [facility] who accepts pt to service *DC/Admit/Observation/Transfer Diagnosis at time of Disposition: COPD exacerbation, Shortness of breath, Acute hypercapnic respiratory failure - Discharge Dispostion Condition at time of disposition: Fair Decision to Admit order: Yes - Referrals Referrals: Noelle Blancas MD [Primary Care Provider] - - Patient Instructions - Post Discharge Activity - Attestations Physician Attestion: 04/19/19 01:33 I, Dr. Sophia Rider, DO, attest that this document has been prepared under my direction and personally reviewed by me in its entirety. I further attest, that it accurately reflects all work, treatment, procedures and medical decision -making performed by me.
[2019-04-19 00:19] LABS: ALBUMIN 3.2 g/dl (3.4-5.0); ALK PHOS 127 U/L (45-117); ANION GAP 2 MMOL/L (8-16); BILIRUBIN,TOTAL 0.6 mg/dL (0.2-1); BLOOD UREA NITROGEN 7.8 mg/dL (7-18); CALCIUM 8.6 mg/dL (8.5-10.1); CHLORIDE 99 mmol/L (98-107); CO2 36 mmol/L (21-32); CREATININE 0.4 mg/dL (0.55-1.3); GLUCOSE,RANDOM 113 mg/dL (74-106); MAGNESIUM 2.3 mg/dL (1.8-2.4); N-TERMINAL BNP 409.3 pg/ml (5-450); POTASSIUM 4.8 mmol/L (3.5-5.1); SGOT/AST 26 U/L (15-37); SGPT/ALT 18 U/L (13-61); SODIUM 136 mmol/L (136-145); TOT PROT 6.6 g/dl (6.4-8.2)
[2019-04-19] MEDS ORDERED: ALBUTEROL SO4 0.083% IH SOL 2.5 MG/3 ML VIAL.NEB. NEB ONE ×2 (01:31→02:29)
--- NOTE | 2019-04-19 01:32 | HP ---
Admitting History and Physical - Primary Care Physician PCP: Noelle Blancas - Admission Chief Complaint: SOB x4 hours History of Present Illness: Pt is a 79 yo underweight M, with signif PMHx of HTN, COPD (2L O2-PRN), lung CA , heart failure, abnormal TSH levels, who was BIBA for acute onset SOB. The pt reports being out running errands today when he began to feel SOB. He rushed home and used his PRN O2 without relief. He however did not use his nebs prior to calling EMS. On route the ED, he received nebs and was placed on NRB, but was still SOB. Per ED, Pt had mild conversational dyspnea. The patient reports a chronic productive cough of greenish sputum, which has not changed in quantity. He denies chills, fevers or sick contacts. Pt was diagnosed with lung cancer 2016 and has been following at [facility], with last chemotx infusion for his lung cancer was 04/17. Pt reports stabilization of his weight loss to 1lb loss over the past month compared to about 12lbs at the time of diagnosis. He denies nausea/vomiting or abdominal pain. Has never been intubated or used bipap. Quit smoking after his cancer diagnosis in 2017. Allergies: NKA Past surgical history: None reported Social history: Former smoker (quit May 2017) Heat Seal Operator: Yani History Source: Patient, Medical Record Limitations to Obtaining History: Other (on bipap) - Past Medical History Cardiovascular: Yes: CAD (card.cath 2015-no stents, (pt had abnormal EKG and stress test)), HTN Pulmonary: Yes: Cancer (squamous cell cancer dg in , multiple sites, not candidate for surgical or radiation, started gemcitabine and carboplatin, currently on gemcitabine maintenance), COPD. No: Asthma Heme/Onc: Yes: Anemia Psych: Yes: Anxiety - Past Surgical History Past Surgical History: Yes: Cataract Removal, Hernia Repair (inguinal) - Smoking History Smoking history: Former smoker (60 pack year smoking history) Have you smoked in the past 12 months: Yes If you are a former smoker, when did you quit?: 2017 - Alcohol/Substance Use Hx Alcohol Use: Yes (BEER DAILY) - Social History ADL: Independent History of Recent Travel: No Home Medications - Allergies Allergies/Adverse Reactions: Allergies Allergy/AdvReac Type Severity Reaction Status Date / Time No Known Allergies Allergy Verified 04/18/19 22:27 - Home Medications Home Medications: Ambulatory Orders Alprazolam [Xanax] 0.25 mg PO Q12H PRN #20 tablet MDD 2 05/19/18 Amlodipine Besylate [Norvasc -] 5 mg PO DAILY tablet 05/19/18 Aspirin Coated [Ecotrin -] 81 mg PO DAILY tablet.ec 05/19/18 Guaifenesin AC [Robitussin AC -] 5 ml PO TID PRN liquid MDD 15ml 05/19/18 Methylprednisolone [Medrol Dose Nas] 4 mg PO ASDIR #21 tablet 05/19/18 Metoprolol Tartrate [Lopressor -] 12.5 mg PO BID #60 tablet 05/19/18 Montelukast Na [Singulair -] 10 mg PO HS #30 tablet 05/19/18 Pantoprazole Sodium [Protonix -] 40 mg PO DAILY #14 tablet.ec 05/19/18 Polyethylene Glycol 3350 [Miralax 119 gm Btl -] 17 gm PO DAILY PRN bottle 05/19 Tiotropium [place] [Spiriva] 1 puff IH DAILY #30 cap 05/19/18 Review of Systems - Review of Systems Constitutional: denies: Chills, Diaphoresis, Fever, Night Sweats Eyes: denies: Blurred Vision HENT: denies: Difficult Swallowing Cardiovascular: reports: Shortness of Breath. denies: Chest Pain, Palpitations Respiratory: reports: Cough, SOB. denies: Wheezing Gastrointestinal: denies: Abdominal Pain Genitourinary: denies: Burning Musculoskeletal: denies: Back Pain Integumentary: reports: Bruising (easy bruising on arm) Neurological: denies: Change in LOC, Change in Speech, Confusion, Dizziness, Headache, Numbness, Parasthesia, Pre-Existing Deficit, Seizure, Syncope, Weakness Hematology/Lymphatic: reports: Easily Bruised Physical Examination Vital Signs: Vital Signs Temperature 98.7 F 04/18/19 22:01 Pulse Rate 88 04/18/19 22:01 Respiratory Rate 22 H 04/18/19 22:01 Blood Pressure 132/77 04/18/19 22:01 O2 Sat by Pulse Oximetry (%) 95 04/19/19 00:00 Constitutional: Yes: Cachectic Eyes: Yes: Conjunctiva Clear, EOM Intact HENT: Yes: Atraumatic Neck: Yes: Supple Cardiovascular: Yes: S1, S2 Respiratory: Yes: Diminished. No: Rales, Rhonchi, Wheezes Gastrointestinal: Yes: Normal Bowel Sounds, Soft. No: Tenderness, Epigastrium Edema: No Peripheral Pulses WNL: Yes Neurological: Yes: Alert, Oriented ...Motor Strength: WNL Psychiatric: Yes: Alert, Oriented. No: Agitated Labs: CBC, BMP 04/18/19 23:09 04/18/19 23:09 Imaging - Results Chest X-ray: Image Reviewed Cat Scan: Report Reviewed Assessment/Plan Ambulatory Orders Alprazolam [Xanax] 0.25 mg PO Q12H PRN #20 tablet MDD 2 05/19/18 Amlodipine Besylate [Norvasc -] 5 mg PO DAILY tablet 05/19/18 Aspirin Coated [Ecotrin -] 81 mg PO DAILY tablet.ec 05/19/18 Guaifenesin AC [Robitussin AC -] 5 ml PO TID PRN liquid MDD 15ml 05/19/18 Methylprednisolone [Medrol Dose Nas] 4 mg PO ASDIR #21 tablet 05/19/18 Metoprolol Tartrate [Lopressor -] 12.5 mg PO BID #60 tablet 05/19/18 Montelukast Na [Singulair -] 10 mg PO HS #30 tablet 05/19/18 Pantoprazole Sodium [Protonix -] 40 mg PO DAILY #14 tablet.ec 05/19/18 Polyethylene Glycol 3350 [Miralax 119 gm Btl -] 17 gm PO DAILY PRN bottle 05/19 Tiotropium [place] [Spiriva] 1 puff IH DAILY #30 cap 05/19/18 Current Medications Albuterol Sulfate (Ventolin 0.083% Nebulizer Soln -) 1 amp NEB Q6H PRN PRN Reason: SHORT OF BREATH/WHEEZING Albuterol/Ipratropium (Duoneb -) 1 amp NEB RQID RAMONA Albuterol/Ipratropium (Duoneb -) 1 amp NEB Q6H PRN PRN Reason: SHORTNESS OF BREATH Amlodipine Besylate (Norvasc -) 5 mg PO DAILY RAMONA Aspirin (Ecotrin -) 81 mg PO DAILY RAMONA Azithromycin (Zithromax 500mg Ivpb (Pre-Docked)) 500 mg in 250 mls @ 250 mls/ hr IVPB DAILY RAMONA Ceftriaxone Sodium 1 gm/ (Dextrose) 50 mls @ 100 mls/hr IVPB DAILY RAMONA; Protocol Methylprednisolone Sodium Succinate (Solu-Medrol -) 40 mg IVPUSH Q8H-IV RAMONA Last Admin: 04/19/19 02:30 Dose: 40 mg Metoprolol Tartrate (Lopressor -) 12.5 mg PO BID RAMONA Pantoprazole Sodium (Protonix -) 40 mg PO DAILY RAMONA Assessment/Plan: Pt is a 79 yo underweight M, with signif PMHx of HTN, COPD (2L O2-PRN), lung CA , heart failure, abnormal TSH levels, who was BIBA for acute onset SOB. The pt reports being out running errands today when he began to feel SOB. #COPD exacerbation in background lung CA R/O CAP On home 02- 2L Chemotherapy infusion yesterday Persistent greenish sputum, Leukocytosis Azithromycin/ceftriaxone bipap- 08/04 Tele abg pending duonebs- standing and PRN Solumed Follow up with outpt hemonc at [facility] #Lung Cancer On chemotx Cont outpt follow up at [facility] #HTN Unable to confirm home meds (pt on bipap) Will cont BP meds #heart failure, Not in exacerbation #abnormal TSH levels Monitor NPO while on Bipap May need out pt follow up for home bipap No standing fluids Monitor lytes, replete as needed Lovenox sq Tele- for pulse ox measurement Visit type - Emergency Visit Emergency Visit: Yes ED Registration Date: 04/19/19 Care time: The patient presented to the Emergency Department on the above date and was hospitalized for further evaluation of their emergent condition. - New Patient This patient is new to me today: Yes Date on this admission: 04/19/19 - Critical Care Critical Care patient: No
[2019-04-19] MEDS ORDERED: ALBUTEROL SO4 2.5/IPRATROPIUM 0.5 INH SOL 3 ML VIAL.NEB. NEB PRN (02:08)
[2019-04-19] MEDS ORDERED: ALBUTEROL SO4 0.083% IH SOL 2.5 MG/3 ML VIAL.NEB. NEB PRN (02:09)
[2019-04-19] MEDS ORDERED: methylPREDNISolone NA SUCC 40 MG/1 ML VIAL ONE (02:29)
[2019-04-19] MEDS: methylPREDNISolone NA SUCC 40 MG/1 ML VIAL IVPUSH SCH ×3 (02:30→19:15)
--- NOTE | 2019-04-19 04:50 | PN ---
Teaching Attending Note Name of Resident: Sarah Rodarte ATTENDING PHYSICIAN STATEMENT I saw and evaluated the patient. I reviewed the resident's note and discussed the case with the resident. I agree with the resident's findings and plan as documented. SUBJECTIVE: Patient is a 79 year old man with PMH of HTN, COPD (2L O2-PRN), lung CA, CHF and abnormal TSH levels, who presents with acute onset SOB. Says he had been out running errands today when he began to feel SOB. He rushed home and used his oxygen without without relief. En route to the ER, he recieved nebs and was placed on NRB, but was still SOB. The patient reports a chronic cough productive greenish sputum, which has not changed in quantity or quality. He denies chills, fevers or sick contacts. Was diagnosed with lung cancer in 2017 and has been following at [facility]. Got chemotherapy infusion for his lung cancer on 04/17/19. Pt reports stabilization of his weight loss to 1lb loss over the past month compared to about 12lbs at the time of diagnosis. He denies nausea/vomiting or abdominal pain. Has never been intubated and quit smoking after his lung cancer diagnosis in 2017. OBJECTIVE: Alert and on Bipap Vital Signs Period Temp Pulse Resp BP Sys/Atylor Pulse Ox Last 24 Hr 98.7 F-99.0 F 73-88 17-22 123-132/76-77 95-98 HEENT: No Jaundice, eye redness or discharge, PERRLA, EOMI. Normocephalic, atraumatic. External ears are normal and hearing is grossly intact. No nasal discharge. Neck: Supple, nontender. No palpable adenopathy or thyromegaly. No JVD Chest: Good effort. Diffuse wheezing. Clear to percussion. Heart: Regular. No S3, rub or murmur Abdomen: Not distended, soft, nontender and no HSM. No rebound or guarding. Normal bowel sounds. Ext: Peripheral pulses intact. No leg edema. Skin: Warm and dry. No petechiae, rash or ecchymosis. Neuro: Alert. Oriented x3. CN 2-12 grossly intact. Sensation grossly intact in all four extremities and DTR are symmetric. Psych: Appropriate mood and affect. Good insight. Current Medications Generic Name Dose Route Start Last Admin Trade Name Freq PRN Reason Stop Dose Admin Albuterol Sulfate 1 amp 04/19/19 02:09 Ventolin 0.083% Nebulizer Soln - NEB Q6H PRN SHORT OF BREATH/WHEEZING Albuterol/Ipratropium 1 amp 04/19/19 08:00 Duoneb - NEB RQID RAMONA Albuterol/Ipratropium 1 amp 04/19/19 02:08 Duoneb - NEB Q6H PRN SHORTNESS OF BREATH Amlodipine Besylate 5 mg 04/19/19 10:00 Norvasc - PO DAILY RAMONA Aspirin 81 mg 04/19/19 10:00 Ecotrin - PO DAILY [facility] Azithromycin 500 mg in 250 mls @ 250 mls/hr 04/19/19 10:00 Zithromax 500mg Ivpb (Pre-Docked) IVPB DAILY [facility] Ceftriaxone Sodium 1 gm/ 50 mls @ 100 mls/hr 04/19/19 10:00 Dextrose IVPB DAILY [facility] Protocol Methylprednisolone Sodium Succinate 40 mg 04/19/19 02:15 04/19/19 02:30 Solu-Medrol - IVPUSH 40 mg Q8H-IV RAMONA Administration Metoprolol Tartrate 12.5 mg 04/19/19 10:00 Lopressor - PO BID [facility] Pantoprazole Sodium 40 mg 04/19/19 10:00 Protonix - PO DAILY [facility] Home Medications Medication Instructions Recorded Alprazolam [Xanax] 0.25 mg PO Q12H PRN #20 tablet MDD 05/19/18 2 Amlodipine Besylate [Norvasc -] 5 mg PO DAILY tablet 05/19/18 Aspirin Coated [Ecotrin -] 81 mg PO DAILY tablet.ec 05/19/18 Guaifenesin AC [Robitussin AC -] 5 ml PO TID PRN liquid MDD 15ml 05/19/18 Methylprednisolone [Medrol Dose 4 mg PO ASDIR #21 tablet 05/19/18 Nas] Metoprolol Tartrate [Lopressor -] 12.5 mg PO BID #60 tablet 05/19/18 Montelukast Na [Singulair -] 10 mg PO HS #30 tablet 05/19/18 Pantoprazole Sodium [Protonix -] 40 mg PO DAILY #14 tablet.ec 05/19/18 Polyethylene Glycol 3350 [Miralax 17 gm PO DAILY PRN bottle 05/19/18 119 gm Btl -] Tiotropium [place] [Spiriva] 1 puff IH DAILY #30 cap 05/19/18 Abnormal Lab Results 04/18/19 04/18/19 04/18/19 23:09 23:09 23:09 WBC 11.2 H Plt Count 441 H D MPV 5.8 L Absolute Neuts (auto) 8.2 H Eosinophils % 6.9 H D VBG pH 7.29 L POC VBG pCO2 74.1 H* POC VBG pO2 70.1 H VBG HCO3 34.8 H VBG O2 Sat (Ke) 90.8 H VBG Base Excess 5.9 H Carbon Dioxide 36 H Anion Gap 2 L Creatinine 0.4 L Random Glucose 113 H Alkaline Phosphatase 127 H Albumin 3.2 L ASSESSMENT AND PLAN: 1. COPD Exacerbation - Noncompliance with home oxygen therapy as well as chemotherapy may have led to acute exacerbation. Will continue BIPAP, monitor him closely, use duoneb, IV solumedrol 40 mg q8 hours, IV Rocephin and azithromycin, and IV protonix. No acute abnormality on CXR and EKG is NSR with no significant acute ST-T wave changes. Counseled to use Home oxygen as prescribed. 2. Hypoalbuminemia - Possibly due to combined effects of malnutrition and inflammation associated with comorbid chronic conditions. Will ensure adequate dietary protein intake and also consult precipitate washer. 3. Hypertension - Restart suitable outpatient antihypertensive drugs when clinically appropriate. Revise regimen to ensure good BP control. Nonpharmacologic measures to control hypertension like weight loss, salt restriction and exercise discussed. 4. DVT prophylaxis - Lovenox 40 mg SQ q 24 hours. 5. Advance directives - Full code
[2019-04-19 05:46] LABS: ARTERIAL BLD GAS O2 SATURATION 97.6 % (95-98); ARTERIAL BLOOD GAS BASE EXCESS 4.6 meq/l (-2-2); ARTERIAL BLOOD GAS PO2 101 mmHg (80-105); ARTERIAL BLOOD GAS pH 7.33 (7.35-7.45)
[2019-04-19 05:47] LABS: ALLENS TEST POSITIVE
[2019-04-19 07:04] LABS: BASO % 0.3 % (0-2.0); HEMATOCRIT 40.4 % (35.4-49); HEMOGLOBIN 13.1 GM/dL (11.7-16.9); LYMPH % 4.2 % (8-40); MCH 28.5 pg (25.7-33.7); MCHC 32.5 g/dl (32.0-35.9); MEAN CELL VOLUME 87.7 fl (80-96); MONO % 0.5 % (3.8-10.2); PLATELET COUNT 430 K/MM3 (134-434); RBC 4.61 M/mm3 (4.00-5.60); RDW 14.4 % (11.9-15.9); WHITE BLOOD COUNT 8.1 K/mm3 (4.0-10.0)
[2019-04-19 07:25] LABS: ALBUMIN 3.1 g/dl (3.4-5.0); BILIRUBIN,TOTAL 0.6 mg/dL (0.2-1); BLOOD UREA NITROGEN 11.2 mg/dL (7-18); CALCIUM 9.2 mg/dL (8.5-10.1); CREATININE 0.6 mg/dL (0.55-1.3); MAGNESIUM 2.5 mg/dL (1.8-2.4); PHOSPHOROUS 4.5 mg/dL (2.5-4.9); POTASSIUM 4.8 mmol/L (3.5-5.1); TOT PROT 6.6 g/dl (6.4-8.2)
[2019-04-19 09:45] LABS: ANISOCYTOSIS 0; MACROCYTOSIS 0; PLATELET ESTIMATE NORMAL
[2019-04-19] MEDS: ALBUTEROL SO4 2.5/IPRATROPIUM 0.5 INH SOL 3 ML VIAL.NEB. NEB SCH ×3 (09:48→20:30)
--- NOTE | 2019-04-19 09:50 | PN ---
Progress Note (short form) - Note Progress Note: feeling better, chronic cough CBC, BMP 04/19/19 06:21 04/19/19 06:21 Vital Signs Period Temp Pulse Resp BP Sys/Taylor Pulse Ox Last 24 Hr 98.7 F-99.0 F 73-88 16-22 101-132/71-77 94-98 S1S2 RRR Lungs cta, no wheezing, no rhonchi on BIPAP Osat98 abd soft no edema aaox3 79 yo male with h/o squamous cell multifocal lung ca and severe COPD, his disease has been stable, last atezolizumab was given on 04.17.19 got acute dyspnea, likely COPD exacerbation while out shopping much better now with overnight BIPAP and steroids request pulmonary f/up steroid taper once stable home O2 GI/DVT prophylaxis
[2019-04-19] MEDS ORDERED: ENOXAPARIN NA (PORCINE) 40 MG/0.4 ML DISP.SYRIN SQ ONE (11:13)
[2019-04-19] MEDS: CEFTRIAXONE 1 GM in DEXTROSE 5%-WATER - 50 ML IVPB SCH (11:40)
[2019-04-19] MEDS: ASPIRIN COATED 81 MG TABLET.EC PO SCH (11:40)
[2019-04-19] MEDS: ENOXAPARIN NA (PORCINE) 40 MG/0.4 ML DISP.SYRIN SQ SCH (11:40)
[2019-04-19] MEDS: PANTOPRAZOLE 40 MG TABLET (FP) PO SCH (11:40)
[2019-04-19] MEDS: amLODIPine BESYLATE 5 MG TABLET (FP) PO SCH (11:40)
[2019-04-19] MEDS: METOPROLOL TARTRATE 25 MG TABLET (FP) PO SCH ×2 (11:40→23:00)
--- NOTE | 2019-04-19 12:30 | EKG ---
Test Reason : Blood Pressure : / mmHG Vent. Rate : 082 BPM Atrial Rate : 082 BPM P-R Int : 166 ms QRS Dur : 082 ms QT Int : 384 ms P-R-T Axes : 084 -71 076 degrees QTc Int : 448 ms NORMAL SINUS RHYTHM LEFT AXIS DEVIATION SEPTAL INFARCT (CITED ON OR BEFORE 15-MAY-2018) ABNORMAL ECG WHEN COMPARED WITH ECG OF 15-MAY-2018 17:14, FUSION COMPLEXES ARE NO LONGER PRESENT PREMATURE VENTRICULAR COMPLEXES ARE NO LONGER PRESENT QUESTIONABLE CHANGE IN INITIAL FORCES OF ANTEROSEPTAL LEADS NONSPECIFIC T WAVE ABNORMALITY NO LONGER EVIDENT IN INFERIOR LEADS T WAVE INVERSION LESS EVIDENT IN ANTEROLATERAL LEADS Confirmed by RACHAEL LEON, GIANLUCA ([id number]) on 04/19/2019 12:30:05 PM Referred By: Confirmed By:GIANLUCA CANO MD
[2019-04-19] MEDS ORDERED: AZITHROMYCIN IVPB 500 MG/250 ML BAG IVPB ONE (13:33)
[2019-04-19] MEDS: AZITHROMYCIN IVPB 500 MG/250 ML BAG IVPB SCH (13:40)
--- NOTE | 2019-04-19 13:52 | CON.PULM ---
Consult Consult Specialty:: PULMONARY Referred by:: Dr Blancas Reason for Consultation:: shortness of breath - History of Present Illness Chief Complaint: shortness of breath History of Present Illness: 79yo male with h/o HTN, COPD, chronic hypoxic respiratory failure on home O2, NSCLC (squamous cell) on chemotherapy, CHF who was admitted for worsening shortness of breath x 1 day. The day before, he had a chemotherapy infusion. Does report a chronic cough with green sputum. No chest pain or palpitations. No significant wheezing. No sick contacts or recent travel. He is a former smoker. Received medrol and inhaled bronchodilators with improvement in symptoms. - History Source History Provided By: Patient, Family Member, Medical Record Limitations to Obtaining History: No Limitations - Past Medical History Cardio/Vascular: Yes: CAD (card.cath 2015-no stents, (pt had abnormal EKG and stress test)), HTN Pulmonary: Yes: Cancer (squamous cell cancer dg in , multiple sites, not candidate for surgical or radiation, started gemcitabine and carboplatin, currently on gemcitabine maintenance), COPD. No: Asthma Psych: Yes: Anxiety - Past Surgical History Past Surgical History: Yes: Cataract Removal, Hernia Repair (inguinal) - Alcohol/Substance Use Hx Alcohol Use: Yes (BEER DAILY) - Smoking History Smoking history: Former smoker (60 pack year smoking history) Have you smoked in the past 12 months: Yes If you are a former smoker, when did you quit?: 2017 - Social History ADL: Independent History of Recent Travel: No Home Medications - Allergies Allergies/Adverse Reactions: Allergies Allergy/AdvReac Type Severity Reaction Status Date / Time No Known Allergies Allergy Verified 04/18/19 22:27 - Home Medications Home Medications: Ambulatory Orders Alprazolam [Xanax] 0.25 mg PO Q12H PRN #20 tablet MDD 2 05/19/18 Amlodipine Besylate [Norvasc -] 5 mg PO DAILY tablet 05/19/18 Aspirin Coated [Ecotrin -] 81 mg PO DAILY tablet.ec 05/19/18 Guaifenesin AC [Robitussin AC -] 5 ml PO TID PRN liquid MDD 15ml 05/19/18 Methylprednisolone [Medrol Dose Nas] 4 mg PO ASDIR #21 tablet 05/19/18 Metoprolol Tartrate [Lopressor -] 12.5 mg PO BID #60 tablet 05/19/18 Montelukast Na [Singulair -] 10 mg PO HS #30 tablet 05/19/18 Pantoprazole Sodium [Protonix -] 40 mg PO DAILY #14 tablet.ec 05/19/18 Polyethylene Glycol 3350 [Miralax 119 gm Btl -] 17 gm PO DAILY PRN bottle 05/19 Tiotropium [place] [Spiriva] 1 puff IH DAILY #30 cap 05/19/18 Review of Systems - Review of Systems Constitutional: reports: Chills, Fever, Weakness Eyes: denies: Recent Change in Vision HENT: denies: Nasal Congestion, Throat Pain Neck: denies: Stiffness, Tenderness Cardiovascular: reports: Shortness of Breath. denies: Chest Pain, Edema, Palpitations Respiratory: reports: Cough, Exercise Intolerance, SOB, SOB on Exertion. denies : Hemoptysis, Wheezing Gastrointestinal: denies: Abdominal Pain, Nausea, Vomiting Genitourinary: denies: Dysuria, Hematuria Neurological: denies: Dizziness, Headache Endocrine: reports: Unexplained Weight Loss Physical Exam Vital Sings: Vital Signs Temperature 98.1 F 04/19/19 13:41 Pulse Rate 84 04/19/19 13:41 Respiratory Rate 20 04/19/19 13:41 Blood Pressure 101/89 04/19/19 13:41 O2 Sat by Pulse Oximetry (%) 93 L 04/19/19 12:00 Constitutional: Yes: Calm Eyes: Yes: Conjunctiva Clear, EOM Intact HENT: Yes: Atraumatic, Normocephalic Neck: Yes: Supple, Trachea Midline Cardiovascular: Yes: Regular Rate and Rhythm Respiratory: Yes: Diminished, Poor Air Entry. No: Wheezes ...Clubbing: No Gastrointestinal: Yes: Normal Bowel Sounds, Soft. No: Tenderness Edema: No Neurological: Yes: Alert, Oriented Labs: CBC, BMP 04/19/19 06:21 04/19/19 06:21 ABG Results ABG pH 7.33 (7.35-7.45) L 04/19/19 05:11 ABG pCO2 at Pt Temp 62.0 mmHg (35-45) H 04/19/19 05:11 ABG pO2 at Pt Temp 101 mmHg (80-105) 04/19/19 05:11 ABG HCO3 31.9 mmol/L (22-27) H 04/19/19 05:11 ABG O2 Sat (Measured) 97.6 % (95-98) 04/19/19 05:11 ABG O2 Content 19.0 % vol (15-22) 04/19/19 05:11 ABG Base Excess 4.6 meq/l (-2-2) H 04/19/19 05:11 Imaging - Results Chest X-ray: Report Reviewed, Image Reviewed (hyperinflated lungs, no infiltrates) Problem List - Problems (1) COPD exacerbation Code(s): J44.1 - CHRONIC OBSTRUCTIVE PULMONARY DISEASE W (ACUTE) EXACERBATION Assessment/Plan Acute on Chronic Hypoxic and Hypercapneic Respiratory Failure Acute COPD Exacerbation NSCLC on chemotherapy Chronic Bronchitis HTN - continue IV medrol, if continues to improve, can likely change to PO prednisone 40mg daily and taper as outpt - inhaled bronchodilators standing and PRN - O2 to keep SpO2 88-95% - BiPAP as needed to assist in work of breathing - empiric azithromycin, can change to PO in AM if ready for discharge - DVT prophylaxis Thank you for this consult Ryan Juarez MD
[2019-04-20] MEDS: methylPREDNISolone NA SUCC 40 MG/1 ML VIAL IVPUSH SCH ×2 (01:08→09:12)
[2019-04-20] MEDS: ALBUTEROL SO4 2.5/IPRATROPIUM 0.5 INH SOL 3 ML VIAL.NEB. NEB SCH ×2 (07:51→12:16)
--- NOTE | 2019-04-20 08:09 | PN ---
Progress Note (short form) - Note Progress Note: feeling better, did not use bipap overnight CBC, BMP 04/19/19 06:21 04/19/19 06:21 Vital Signs Period Temp Pulse Resp BP Sys/Taylor Pulse Ox Last 24 Hr 97.5 F-98.6 F 61-84 18-20 99-117/57-89 92-93 S1S2 RRR Lungs cta, no wheezing, no rhonchi on BIPAP Osat98 abd soft no edema aaox3 79 yo male with h/o squamous cell multifocal lung ca and severe COPD, his disease has been stable, last atezolizumab was given on 04.17.19 got acute dyspnea, likely COPD exacerbation while out shopping much better now with overnight BIPAP and steroids request pulmonary f/up oral steroid taper home O2 GI/DVT prophylaxis dc planning
[2019-04-20] MEDS ORDERED: cefTRIAXone SODIUM 1 GM VIAL ONE (08:50)
[2019-04-20] MEDS ORDERED: DEXTROSE 5%-WATER - 50 ML IVPB ONE (08:51)
[2019-04-20] MEDS: ASPIRIN COATED 81 MG TABLET.EC PO SCH (09:11)
[2019-04-20] MEDS: ENOXAPARIN NA (PORCINE) 40 MG/0.4 ML DISP.SYRIN SQ SCH (09:11)
[2019-04-20] MEDS: PANTOPRAZOLE 40 MG TABLET (FP) PO SCH (09:11)
[2019-04-20] MEDS: METOPROLOL TARTRATE 25 MG TABLET (FP) PO SCH (09:11)
[2019-04-20] MEDS: amLODIPine BESYLATE 5 MG TABLET (FP) PO SCH (09:11)
[2019-04-20] MEDS: CEFTRIAXONE 1 GM in DEXTROSE 5%-WATER - 50 ML IVPB SCH (09:12)
[2019-04-20] MEDS: AZITHROMYCIN IVPB 500 MG/250 ML BAG IVPB SCH (09:12)
[2019-04-20 15:02] VITALS: TEMP 98
--- NOTE | 2019-04-20 15:12 | PN ---
Progress Note (short form) - Note Progress Note: Feels overall better. Less SOB. No CP. Intake & Output 04/17/19 04/18/19 04/19/19 04/20/19 23:59 23:59 23:59 23:59 Intake Total 300 20 Balance 300 20 Weight 121 lb 4.068 oz 121 lb 4.068 oz 120 lb 9.6 oz Last Vital Signs Temp Pulse Resp BP Pulse Ox 98 F 66 18 110/74 93 L 04/20/19 10:00 04/20/19 10:00 04/20/19 10:00 04/20/19 10:00 04/20/19 12:16 Active Medications Albuterol Sulfate (Ventolin 0.083% Nebulizer Soln -) 1 amp NEB Q6H PRN PRN Reason: SHORT OF BREATH/WHEEZING Albuterol/Ipratropium (Duoneb -) 1 amp NEB RQID [facility] Last Admin: 04/20/19 12:16 Dose: 1 amp Amlodipine Besylate (Norvasc -) 5 mg PO DAILY [facility] Last Admin: 04/20/19 09:11 Dose: 5 mg Aspirin (Ecotrin -) 81 mg PO DAILY [facility] Last Admin: 04/20/19 09:11 Dose: 81 mg Azithromycin (Zithromax -) 250 mg PO DAILY [facility] Enoxaparin Sodium (Lovenox -) 40 mg SQ DAILY [facility] Last Admin: 04/20/19 09:11 Dose: 40 mg Methylprednisolone Sodium Succinate (Solu-Medrol -) 40 mg IVPUSH Q8H-IV [facility] Last Admin: 04/20/19 09:12 Dose: 40 mg Pantoprazole Sodium (Protonix -) 40 mg PO DAILY [facility] Last Admin: 04/20/19 09:11 Dose: 40 mg Constitutional: Yes:NAD, mildly tachypneic at rest Eyes: Yes: Conjunctiva Clear, EOM Intact HENT: Yes: Atraumatic, Normocephalic Neck: Yes: Supple, Trachea Midline Cardiovascular: Yes: Regular Rate and Rhythm Respiratory: Yes: Diminished, Poor Air Entry. No: Wheezes ...Clubbing: No Gastrointestinal: Yes: Normal Bowel Sounds, Soft. No: Tenderness Edema: No Neurological: Yes: Alert, Oriented Labs: Problem List - Problems (1) COPD exacerbation Code(s): J44.1 - CHRONIC OBSTRUCTIVE PULMONARY DISEASE W (ACUTE) EXACERBATION Assessment/Plan Acute on Chronic Hypoxic and Hypercapneic Respiratory Failure Acute COPD Exacerbation NSCLC on chemotherapy Chronic Bronchitis HTN Prednisone course BD TX as ordered There is no Pulmonary contraindication for D/C home. Advised continuous O2, BD TX TID and PRN, and course of Prednisone. No smoking Patient already has home O2 @ 2 L NC Patient will follow in the office Dr Lomeli
[2019-04-20 15:14] VITALS: BP 108/58; PULSE 70
[2019-04-21] MEDS ORDERED: AZITHROMYCIN 250 MG TABLET PO SCH (10:00)
--- NOTE | 2019-04-24 10:34 | DS ---
Physical Examination Vital Signs: Vital Signs Temperature 98 F 04/20/19 14:00 Pulse Rate 70 04/20/19 14:00 Respiratory Rate 20 04/20/19 14:00 Blood Pressure 108/58 L 04/20/19 14:00 O2 Sat by Pulse Oximetry (%) 93 L 04/20/19 12:16 Labs: CBC, BMP 04/19/19 06:21 04/19/19 06:21 Discharge Summary Reason For Visit: ACUTE RESPIRATORY FAILURE WITH HYPERCAPNIA/ACUTE Condition: Fair - Instructions Disposition: HOME - Home Medications Comprehensive Discharge Medication List: Ambulatory Orders Amlodipine Besylate [Norvasc -] 5 mg PO DAILY tablet 05/19/18 Aspirin Coated [Ecotrin -] 81 mg PO DAILY tablet.ec 05/19/18 Guaifenesin AC [Robitussin AC -] 5 ml PO TID PRN liquid MDD 15ml 05/19/18 Metoprolol Tartrate [Lopressor -] 12.5 mg PO BID #60 tablet 05/19/18 Montelukast Na [Singulair -] 10 mg PO HS #30 tablet 05/19/18 Pantoprazole Sodium [Protonix -] 40 mg PO DAILY #14 tablet.ec 05/19/18 Polyethylene Glycol 3350 [Miralax 119 gm Btl -] 17 gm PO DAILY PRN bottle 05/19 Tiotropium [place] [Spiriva] 1 puff IH DAILY #30 cap 05/19/18 Azithromycin [Zithromax 250mg Tablets -] 250 mg PO DAILY #3 tablet 04/20/19 Methylprednisolone [Medrol Dose Nas] 4 mg PO ASDIR #21 tablet 04/20/19
== END 2019-04-20 15:19 | disposition home or self-care (01) | DRG 189 ==
LOC: JER 21:35 → JERBED 04-19 01:34 → J4W 04-19 15:15
PROVIDERS: ADMIT Internal Medicine; ATTEND Internal Medicine
PROC: 5A09357 Assistance with Respiratory Ventilation, Less than 24 Consecutive Hours, Continuous Positive Airway Pressure (ICD-10-PCS; principal; 2019-04-19)
DX: J96.21 Acute and chronic respiratory failure with hypoxia (principal); J44.1 Chronic obstructive pulmonary disease with (acute) exacerbation; C34.90 Malignant neoplasm of unspecified part of unspecified bronchus or lung; R64 Cachexia; Z68.1 Body mass index [BMI] 19.9 or less, adult; J96.22 Acute and chronic respiratory failure with hypercapnia; I11.0 Hypertensive heart disease with heart failure; I50.9 Heart failure, unspecified; E88.09 Other disorders of plasma-protein metabolism, not elsewhere classified; I25.10 Atherosclerotic heart disease of native coronary artery without angina pectoris; D64.9 Anemia, unspecified; F41.9 Anxiety disorder, unspecified; Z87.891 Personal history of nicotine dependence
CPT/HCPCS: 36415; 36600; 71045-TC-FY; 80053; 82375; 82550; 82803; 83050; 83735; 83880; 84100; 84484; 85025; 93005; 93010; 94640; 94660; 99285-25